=== PATIENT | male | born 1955 | race American Indian/Alaskan Native ===

== ENCOUNTER 2017-12-16 20:04 | Emergency (ER) | payer MEDICARE | END 2017-12-16 22:15 | disposition left against medical advice (07) | LOC: ED 20:04 | DX: Z53.21 Procedure and treatment not carried out due to patient leaving prior to being seen by health care provider (principal) ==

== ENCOUNTER 2018-08-25 12:32 | Observation (INO) | payer MEDICARE ==
[2018-08-16 11:40] LABS: Basophils # (Auto) 0.1 K/mm3 (0.0-0.1); Basophils % (Auto) 0.8 % (0.0-1.8); Eosinophils # (Auto) 0.2 K/mm3 (0.0-0.4); Eosinophils % (Auto) 3.6 % (0.0-4.3); Hematocrit 49.7 % (35.5-45.6); Hemoglobin 16.2 gm/dl (11.8-15.2); Lymphocytes # (Auto) 2.8 K/mm3 (1.2-5.4); Lymphocytes % (Auto) 39.6 % (13.4-35.0); Mean Corpuscular HGB Conc 33 % (32-34); Mean Corpuscular Hemoglobin 30 pg (28-32); Mean Corpuscular Volume 91 fl (84-94); Monocytes # (Auto) 0.7 K/mm3 (0.0-0.8); Monocytes % (Auto) 10.3 % (0.0-7.3); Platelet Count 322 K/mm3 (140-440); Red Blood Count 5.46 M/mm3 (3.65-5.03); Red Cell Distribution Width 16.2 % (13.2-15.2)
[2018-08-16 11:51] LABS: INR 1.06 (0.87-1.13); Partial Thromboplastin Time 32.3 Sec. (24.2-36.6)
[2018-08-16 11:58] LABS: Alanine Aminotransferase 13 units/L (7-56); Albumin 4.1 g/dL (3.9-5); BUN/Creatinine Ratio 9; Blood Urea Nitrogen 9 mg/dL (9-20); Calcium 8.7 mg/dL (8.4-10.2); Hemolysis Index 61
--- NOTE | 2018-08-16 13:36 | Anesthesia Consultation ---
Anesthesia Consult and Med Hx Date of service: 08/16/18 - Airway Anesthetic Teeth Evaluation: Poor ROM Head & Neck: Adequate Mental/Hyoid Distance: Adequate Mallampati Class: Class III Intubation Access Assessment: Possibly Difficult - Pulmonary Exam CTA: Yes - Cardiac Exam Cardiac Exam: RRR - Pre-Operative Health Status ASA Pre-Surgery Classification: ASA3 Proposed Anesthetic Plan: General - Pulmonary Hx Smoking: Yes (STOPPED 1997- 1 PACK PER WEEK X 8 YRS) Hx Asthma: No COPD: No Hx Sleep Apnea: Yes (DX SLEEP APNEA WITH CPAP USE.) - Cardiovascular System Hx Hypertension: Yes Hx Coronary Artery Disease: Yes Hx Heart Attack/AMI: Yes (1990; medically managed) Hx Angina: Yes (occasional with activity) Hx Percutaneous Transluminal Coronary Angioplasty (PTCA): No - Central Nervous System Hx Seizures: No CVA: Yes (2016- LEFT LEG WEAKNESS,PAIN ,NUMBNESS) Hx Back Pain: Yes Hx Psychiatric Problems: Yes (Anxiety disorder; STATES PTSD CAUSED MILD DEMENTIA ) - Gastrointestinal Hx Ulcer: No Hx Gastroesophageal Reflux Disease: No - Endocrine Hx Renal Disease: Yes (CKD) Hx Liver Disease: No Hx Insulin Dependent Diabetes: No Hx Thyroid Disease: No - Hematic Hx Anemia: No (polycythemia) - Other Systems Hx Alcohol Use: No Hx Substance Use: No Hx Cancer: No Hx Obesity: Yes - Additional Comments Anesthesia Medical History Comments: Patient has cardiology appointment 08/17 and will fax any test results to [facility] once completed. Reports chronic pain and takes oxycontin 10mg TID. Drowsy during examination which he attributes to chronic fatigue.
[2018-08-25] MEDS: LACTATED RINGERS 1,000 ML IV SCH ×2 (14:00→23:24)
[2018-08-25] MEDS ORDERED: ANCEF/STERILE WATER 2 GM/20 ML IV NR (14:00)
[2018-08-25] MEDS ORDERED: XYLOCAINE MPF 2% ONE (15:36)
[2018-08-25] MEDS ORDERED: DIPRIVAN 10 MG/ML IV ONE ×2 (15:36→16:23)
[2018-08-25] MEDS ORDERED: DILAUDID ONE ×3 (15:37→19:39)
[2018-08-25] MEDS ORDERED: HYDROGEN PEROXIDE IRRIGATION ONE (16:14)
[2018-08-25] MEDS ORDERED: NACL 0.9% IR ONE (16:14)
[2018-08-25] MEDS ORDERED: NEOSPORIN GU IR ONE (16:14)
[2018-08-25] MEDS ORDERED: ZOFRAN IV PRN ×2 (16:35→18:11)
--- NOTE | 2018-08-25 16:35 | Anesthesia Day of Surgery ---
Anesthesia Day of Surgery - Day of Surgery Patient Examined: Yes Patient H&P Reviewed: Yes Patient is NPO: Yes
[2018-08-25] MEDS ORDERED: DECADRON ONE (16:51)
[2018-08-25] MEDS ORDERED: ZOFRAN ONE (16:51)
[2018-08-25] MEDS ORDERED: SUBLIMAZE ONE ×3 (16:56→18:01)
--- NOTE | 2018-08-25 18:10 | Short Stay Summary ---
Short Stay Documentation Date of service: 08/25/18 Narrative H&P: 63 yr old male with impotence s/p ipp. pt with pain penile and unable to inflate----vavle malfunction Long discussion with pt & in pre op area again the want to replace - History Past Medical History: hypertension Past Surgical History: Other (ipp in past) - Allergies and Medications Current Medications: Allergies codeine Allergy (Verified 08/11/18 10:03) Itching Home Medications Medication Instructions Recorded Confirmed Last Taken Type Aspirin EC [Aspirin Enteric Coated 81 mg PO QDAY 09/07/13 08/25/18 08/22/18 History TAB] Cholecalciferol (Vitamin D3) 2,000 unit PO QDAY 09/07/13 08/11/18 08/24/18 22: 00 History [Vitamin D3 2,000 unit] Quetiapine Fumarate [SEROquel XR] 800 mg PO QHS 09/07/13 08/16/18 08/24/18 22: 00 History Oxycodone HCl/Acetaminophen 1 each PO Q6HR PRN #40 tablet 04/26/15 08/11/1801/10 22:00 Rx [Percocet 10/325 mg] Prazosin 50 mg PO QHS 04/26/15 08/16/18 08/24/18 22:00 History oxyCODONE [Roxicodone] 10 mg PO TID 08/11/18 08/25/18 08/24/18 22:00 History AtorvaSTATin [Lipitor] 10 mg PO QHS 08/16/18 08/16/18 08/24/18 22:00 History LORazepam [Ativan] 2 mg PO QHS 08/16/18 08/16/18 08/24/18 22:00 History Linaclotide (Nf) [Linzess (Nf)] 290 mcg PO QDAY 08/16/18 08/25/18 08/21/18 History Losartan/Hydrochlorothiazide 1 each PO DAILY 08/16/18 08/16/18 08/24/18 22:00 History [Losartan-Hctz 100-25 mg Tab] Potassium Chloride [Klor-Con 8] 8 meq PO QDAY 08/16/18 08/16/18 08/24/18 22:00 History Rivaroxaban [Xarelto] 5 mg PO QDAY 08/16/18 08/25/18 08/17/18 History Sertraline [Zoloft] 100 mg PO QDAY 08/16/18 08/16/18 08/24/18 22:00 History Tamsulosin HCl [Flomax] 0.4 mg PO DAILY 08/16/18 08/16/18 08/24/18 22:00 History busPIRone [Buspar] 10 mg PO TID 08/16/18 08/16/18 08/24/18 22:00 History Active Medications Cefazolin Sodium (Ancef/Sterile Water 2 Gm/20 Ml) 2 gm IV PREOP NR Stop: 08/25/18 23:59 Hydromorphone HCl (Dilaudid) 0.5 mg IV Q10MIN PRN PRN Reason: Pain , Severe (7-10) Stop: 08/26/18 06:00 Lactated Ringer's (Lactated Ringers) 1,000 mls @ 100 mls/hr IV DIRECT POLLY Last Admin: 08/25/18 14:00 Dose: 100 mls/hr Ondansetron HCl (Zofran) 4 mg IV ONCE PRN PRN Reason: Nausea And Vomiting - Physical exam General appearance: no acute distress, well-nourished Integumentary: no rash, no growths Breasts: deferred Heart: Regular rate, No murmurs Gastrointestinal: normal Male Genitourinary: normal Rectal Exam: deferred Extremities: no ischemia, No edema - Brief post op/procedure progress note Date of procedure: 08/25/18 Pre-op diagnosis: mal fx ipp Post-op diagnosis: same Procedure: replace ipp (18cm + 4 cm RTE) Anesthesia: CHRISTOPHER Surgeon: JANN JOSEPH Slitter And Rewinder Machine Operator: SHUBHAM CROCKER Estimated blood loss: minimal Pathology: list (ipp device) Specimen disposition: to lab Condition: stable - Hospital course Hospital course: bactrim & dilaudid on chart - Disposition Condition at discharge: Stable Disposition: DC-01 TO HOME OR SELFCARE Short Stay Discharge Plan Follow up with: PIERO CHAN MD [Primary Care Provider] - 7 Days
[2018-08-25] MEDS ORDERED: ZOFRAN ODT PO PRN (18:11)
[2018-08-25] MEDS ORDERED: NARCAN 0.4 MG/1 ML IV PRN (18:11)
[2018-08-25] MEDS ORDERED: DILAUDID PO PRN (18:20)
[2018-08-25] MEDS ORDERED: NACL 0.9% 1,000 ML IR ONE (18:44)
[2018-08-25] MEDS ORDERED: LACTATED RINGERS 1,000 ML IV SCH (19:00)
[2018-08-25] MEDS: DILAUDID IV PRN ×3 (19:10→20:58)
[2018-08-25] MEDS ORDERED: LACTATED RINGERS 1,000 ML ONE (19:43)
--- NOTE | 2018-08-25 19:59 | Consultation ---
History of Present Illness - Reason for Consult Consult date: 08/25/18 Requesting physician: JANN JOSEPH - History of Present Illness 63 YO Male with HTN, CAD, [place], PTSD, Chronic Pain, CVA LHP, TIGIST, Obesity presents to [facility] for elective urologic procedure. Consult placed for medical management as per primary team. Pt seen and evaluated upon arrival to surgical floor. Pt denies fever, chills, CP, Palpitations, shortness of breath, NVD, Falls, dizziness, syncope, or pain. Pt at bedside during exam and interview. No reported nursing events. Past History Past Medical History: acute [place], CAD, hypertension, stroke Past Surgical History: Other (ipp in past) Social history: , lives with family. denies: smoking, alcohol abuse, prescription drug abuse Family history: hypertension Medications and Allergies Allergies Allergy/AdvReac Type Severity Reaction Status Date / Time codeine Allergy Itching Verified 08/11/18 10:03 Home Medications Medication Instructions Recorded Confirmed Last Taken Type Aspirin EC [Aspirin Enteric Coated 81 mg PO QDAY 09/07/13 08/25/18 08/22/18 History TAB] Cholecalciferol (Vitamin D3) 2,000 unit PO QDAY 09/07/13 08/11/18 08/24/18 22: 00 History [Vitamin D3 2,000 unit] Quetiapine Fumarate [SEROquel XR] 800 mg PO QHS 09/07/13 08/16/18 08/24/18 22: 00 History Oxycodone HCl/Acetaminophen 1 each PO Q6HR PRN #40 tablet 04/26/15 08/11/1801/10 22:00 Rx [Percocet 10/325 mg] Prazosin 50 mg PO QHS 04/26/15 08/16/18 08/24/18 22:00 History oxyCODONE [Roxicodone] 10 mg PO TID 08/11/18 08/25/18 08/24/18 22:00 History AtorvaSTATin [Lipitor] 10 mg PO QHS 08/16/18 08/16/18 08/24/18 22:00 History LORazepam [Ativan] 2 mg PO QHS 08/16/18 08/16/18 08/24/18 22:00 History Linaclotide (Nf) [Linzess (Nf)] 290 mcg PO QDAY 08/16/18 08/25/18 08/21/18 History Losartan/Hydrochlorothiazide 1 each PO DAILY 08/16/18 08/16/18 08/24/18 22:00 History [Losartan-Hctz 100-25 mg Tab] Potassium Chloride [Klor-Con 8] 8 meq PO QDAY 08/16/18 08/16/18 08/24/18 22:00 History Rivaroxaban [Xarelto] 5 mg PO QDAY 08/16/18 08/25/18 08/17/18 History Sertraline [Zoloft] 100 mg PO QDAY 08/16/18 08/16/18 08/24/18 22:00 History Tamsulosin HCl [Flomax] 0.4 mg PO DAILY 08/16/18 08/16/18 08/24/18 22:00 History busPIRone [Buspar] 10 mg PO TID 08/16/18 08/16/18 08/24/18 22:00 History Active Meds: Active Medications Atorvastatin Calcium (Lipitor) 10 mg PO QHS POLLY Buspirone HCl (Buspar) 10 mg PO TID [facility] Cefazolin Sodium (Ancef/Sterile Water 2 Gm/20 Ml) 2 gm IV PREOP NR Stop: 08/25/18 23:59 Cholecalciferol (Vitamin D3) 2,000 unit PO QDAY POLLY Hydrochlorothiazide (Hctz) 25 mg PO QDAY POLLY Hydromorphone HCl (Dilaudid) 0.5 mg IV Q10MIN PRN PRN Reason: Pain , Severe (7-10) Stop: 08/26/18 06:00 Last Admin: 08/25/18 19:38 Dose: 0.5 mg Hydromorphone HCl (Dilaudid) 2 mg IV Q4H PRN PRN Reason: Pain , Severe (7-10) Lactated Ringer's (Lactated Ringers) 1,000 mls @ 100 mls/hr IV DIRECT POLLY Last Admin: 08/25/18 14:00 Dose: 100 mls/hr Cefazolin Sodium (Ancef/Ns 1 Gm/50 Ml) 1 gm in 50 mls @ 100 mls/hr IV Q8H POLLY; Protocol Stop: 08/26/18 03:29 Lactated Ringer's (Lactated Ringers) 1,000 mls @ 125 mls/hr IV DIRECT POLLY Lorazepam (Ativan) 2 mg PO QHS [facility] Losartan Potassium (Cozaar) 100 mg PO QDAY [facility] Miscellaneous Medication (Linaclotide (Nf)) 290 mcg PO QDAY [facility] Miscellaneous Medication (Prazosin) 50 mg PO QHS [facility] Miscellaneous Medication (Quetiapine Fumarate [Seroquel Xr]) 800 mg PO QHS [facility] Naloxone HCl (Narcan 0.4 Mg/1 Ml) 0.1 mg IV Q2MIN PRN PRN Reason: Res Rate </= 8 or 02 SAT < 92% Ondansetron HCl (Zofran) 4 mg IV ONCE PRN PRN Reason: Nausea And Vomiting Ondansetron HCl (Zofran) 4 mg IV Q8H PRN PRN Reason: N/V unrelieved by Reglan Ondansetron HCl (Zofran Odt) 4 mg PO Q8H PRN PRN Reason: Nausea And Vomiting Potassium Chloride (Klor-Con 8) 8 meq PO QDAY [facility] Sertraline HCl (Zoloft) 100 mg PO QDAY [facility] Tamsulosin HCl (Flomax) 0.4 mg PO DAILY [facility] Review of Systems Constitutional: no weight loss, no weight gain, no fever, no chills Ears, nose, mouth and throat: no ear discharge, no tinnitis, no decreased hearing, no nose pain, no nasal congestion, no nasal discharge Cardiovascular: no chest pain, no orthopnea, no palpitations, no rapid/ irregular heart beat, no edema, no syncope Respiratory: no cough, no cough with sputum, no excessive sputum, no hemoptysis , no shortness of breath Gastrointestinal: no abdominal pain, no nausea, no vomiting, no diarrhea, no constipation Genitourinary Male: no dysuria, no hematuria, no flank pain, no discharge, no urinary frequency, no urinary hesitancy Rectal: no pain, no incontinence, no bleeding Musculoskeletal: no neck stiffness, no neck pain, no shooting arm pain, no arm numbness/tingling, no low back pain, no shooting leg pain Integumentary: no rash, no pruritis, no redness, no sores, no wounds Neurological: no transient paralysis, no paralysis, no weakness, no parathesias , no numbness, no tingling Psychiatric: no anxiety, no memory loss, no change in sleep habits, no sleep disturbances, no insomnia Endocrine: no cold intolerance, no heat intolerance, no polyphagia, no excessive thirst, no polydipsia, no polyuria, no nocturia Hematologic/Lymphatic: no easy bruising, no easy bleeding, no lymphadenopathy, no lymphedema Allergic/Immunologic: no urticaria, no allergic rhinitis, no wheezing, no persistent infections, no anaphylaxis, no angioedema Exam - Constitutional Vitals: Temp Pulse Resp BP Pulse Ox 98.3 F 94 H 10 L 156/93 96 08/25/18 18:32 08/25/18 19:45 08/25/18 19:45 08/25/18 19:45 08/25/18 19:45 General appearance: Present: no acute distress, well-nourished - EENT Eyes: Present: PERRL ENT: hearing intact, clear oral mucosa - Neck Neck: Present: supple, normal ROM - Respiratory Respiratory effort: normal Respiratory: bilateral: CTA - Cardiovascular Heart Sounds: Present: S1 & S2. Absent: rub, click - Extremities Extremities: pulses symmetrical, No edema Peripheral Pulses: within normal limits - Abdominal General gastrointestinal: Present: soft, non-tender, non-distended, normal bowel sounds Male genitourinary: Present: normal - Integumentary Integumentary: Present: clear, warm, dry - Musculoskeletal Musculoskeletal: gait normal, strength equal bilaterally - Psychiatric Psychiatric: appropriate mood/affect, intact judgment & insight - Neurologic Neurologic: CNII-XII intact, moves all extremities Results - Labs CBC & Chem 7: 08/26/18 04:33 08/25/18 20:50 Assessment and Plan - Patient Problems (1) HTN (hypertension) Current Visit: Yes Status: Acute Qualifiers: Hypertension type: essential hypertension Qualified Code(s): I10 - Essential (primary) hypertension Plan to address problem: Monitor bp q shift, continue prehospital therapy, supportive care, pain control (2) TIGIST (obstructive sleep apnea) Current Visit: Yes Status: Acute Plan to address problem: supplemental oxygen, nebulizer therapy, NNIPPV as clinically indicated (3) CAD (coronary artery disease) Current Visit: Yes Status: Acute Qualifiers: Associated angina: without angina Plan to address problem: low cholesterol diet, increased physical activity at discharge, risk factor modification. (4) DVT prophylaxis Current Visit: No Status: Acute Plan to address problem: SCD to BLE while in bed.
[2018-08-25 21:18] LABS: Hematocrit 44.2 % (35.5-45.6); Hemoglobin 15.4 gm/dl (11.8-15.2); Mean Corpuscular HGB Conc 35 % (32-34); Mean Corpuscular Hemoglobin 31 pg (28-32); Mean Corpuscular Volume 89 fl (84-94); Platelet Count 313 K/mm3 (140-440); Red Blood Count 4.99 M/mm3 (3.65-5.03); Red Cell Distribution Width 15.3 % (13.2-15.2)
[2018-08-25 21:31] LABS: BUN/Creatinine Ratio 10; Blood Urea Nitrogen 10 mg/dL (9-20); Calcium 8.6 mg/dL (8.4-10.2); Hemolysis Index 22
[2018-08-25] MEDS ORDERED: PRAZOSIN PO SCH (22:00)
[2018-08-25] MEDS ORDERED: QUETIAPINE FUMARATE 800 MG PO SCH (22:00)
[2018-08-25 23:07] LABS: Basophils % (Manual) 0 % (0.0-1.8); Eosinophils % (Manual) 0 % (0.0-4.3); Platelet Estimate Consistent w Auto; RBC Morphology Normal; Total Cells Counted 100
[2018-08-25] MEDS: ATIVAN PO SCH (23:23)
--- NOTE | 2018-08-25 23:30 | Operative Report ---
PREOPERATIVE DIAGNOSES: Malfunctioning penile prosthesis, erectile dysfunction, pump malfunction. POSTOPERATIVE DIAGNOSES: Malfunctioning penile prosthesis, erectile dysfunction, pump malfunction. PROCEDURE: Removal of inflatable penile prosthesis and reinsertion of inflatable penile prosthesis (AMS CX 18 cm + 4 cm rear tip mooner Michael modified irrigation. SURGEON: Lan Benedict MD CLAY PIGEON LOADER: Demetrius Laguerre. ANESTHESIA: General. ESTIMATED BLOOD LOSS: Minimal. FLUIDS: Crystalloid. COMPLICATIONS: No complications. INDICATIONS: A 63-year-old gentleman known to my service long history of erectile dysfunction is actually seen by Dr. Wilde at [facility] initially where penile prosthesis was placed. I exchanged it due to pain. The patient did well for a while. He presents now. The pump causes pain and is not working. Exam was consistent with pump. The valve is malfunctioning and fluid will not move from the reservoir to the cylinders. Discussed options with the patient in the office, he agreed to proceed with removal. However, in the preop area, the day of surgery, the patient and his had a long discussion regarding whether to remove and replace the device. She was concerned about length and after answering their questions, they were both in agreement that we will remove and replace the penile prosthesis. The operative nurse was also present during this discussion. DESCRIPTION OF PROCEDURE: The patient was taken to the operative suite, placed in a supine position. After adequate general anesthesia, he was prepped and draped in a sterile fashion. Martinez catheter was placed on the operative field. A transscrotal incision was made. Sharp dissection was taken down to the pump. The pump was exposed. No obvious infection. The tissue was cultured with aerobic and anaerobic cultures. We tracked the tubing to the cylinders. Corporotomies were made, cylinders were removed. Again, no signs of infection, but these areas were cultured as well with anaerobic and aerobic cultures. Measurements revealed a total length was 22 cm and therefore an 18 cm device with a 4 cm rear tip extenders were prepped. The reservoir was in the retropubic space via the left external ring. Multiple attempts, aggressive attempts to try to remove it, only part of the device could be removed. The reservoir was left in place due to scar tissue. No signs of infection could be appreciated. Using a modified Michael ____ copious amounts of irrigation was performed. Adequate hemostasis achieved. A new set of gloves were placed, were donned and the cylinders were placed in the corporal bodies with the aid of a Ming needle. Corporotomies were closed with 2-0 Vicryl in a running fashion. Insufflation of the device revealed an excellent response. A new reservoir was placed in the retropubic space via the right external ring, 100 mL of saline was placed with minimal back pressure. The pump and the reservoir were connected with the quick click connection system. Insufflation and deflation was adequate, very good cosmetic appearance. The pump was then placed in the dependent portion of the scrotum. Dartos layer was closed with 2-0 Vicryl in a running fashion. A pursestring suture was used to secure the pump in the dependent portion of the scrotum. Skin was closed with 2-0 Vicryl in interrupted fashion. A small piece of Xeroform gauze and mummy wrap was placed. The patient was extubated and taken to recovery room. Demetrius Laguerre was present for the entire procedure to assist with surgical dissection. JOB# [id number] GARY/ALFREDO
[2018-08-26] MEDS: BUSPAR PO SCH ×4 (00:35→20:42)
[2018-08-26] MEDS: DILAUDID IV PRN ×5 (01:21→19:47)
[2018-08-26] MEDS: ANCEF/NS 1 GM/50 ML 1 GM/50 ML BAG IV SCH ×2 (03:22→03:29)
[2018-08-26 05:18] LABS: Basophils % (Auto) 0.1 % (0.0-1.8); Hematocrit 47.6 % (35.5-45.6); Hemoglobin 15.6 gm/dl (11.8-15.2); Lymphocytes # (Auto) 1.8 K/mm3 (1.2-5.4); Lymphocytes % (Auto) 13.2 % (13.4-35.0); Mean Corpuscular HGB Conc 33 % (32-34); Mean Corpuscular Hemoglobin 29 pg (28-32); Mean Corpuscular Volume 89 fl (84-94); Monocytes # (Auto) 1.5 K/mm3 (0.0-0.8); Monocytes % (Auto) 10.9 % (0.0-7.3); Platelet Count 331 K/mm3 (140-440); Red Blood Count 5.32 M/mm3 (3.65-5.03); Red Cell Distribution Width 15.2 % (13.2-15.2)
[2018-08-26 05:33] LABS: BUN/Creatinine Ratio 9; Blood Urea Nitrogen 9 mg/dL (9-20); Calcium 9.1 mg/dL (8.4-10.2); Hemolysis Index 15
--- NOTE | 2018-08-26 08:43 | Event Note ---
Date: 08/26/18 s/p replace ipp looks good wrap removed hx of BPH now gross hematuria CTAP
[2018-08-26] MEDS ORDERED: FLOMAX PO SCH ×2 (10:00)
[2018-08-26] MEDS ORDERED: NON-FORMULARY (Linaclotide (Nf) 290 MCG) PO SCH (10:00)
[2018-08-26] MEDS ORDERED: KLOR-CON 8 PO SCH (10:00)
[2018-08-26] MEDS ORDERED: NON-FORMULARY (Losartan/Hydrochlorothiazide [Losartan-Hctz 100-25 Mg Tab] 1 EACH) PO SCH (10:00)
[2018-08-26] MEDS ORDERED: NON-FORMULARY (Cholecalciferol (Vitamin D3) [Vitamin D3 2,000 Unit] 2,000 UNIT) PO SCH (10:00)
[2018-08-26] MEDS: ZOLOFT PO SCH (10:16)
[2018-08-26] MEDS: VITAMIN D3 PO SCH (10:16)
[2018-08-26] MEDS: HCTZ PO SCH (10:17)
[2018-08-26] MEDS: COZAAR PO SCH (10:17)
--- NOTE | 2018-08-26 10:34 | Cat Scan Report ---
CT ABDOMEN PELVIS WITHOUT CONTRAST: HISTORY: Gross hematuria. COMPARISON: none. TECHNIQUE: Helical CT in 1.25mm intervals without IV contrast. Sagittal and coronal reconstructions. FINDINGS: Lung bases: Small bilateral layering pleural effusions are identified. Liver: A 4 cm cyst is noted near the dome of the liver. The remainder the liver is within normal limits. Biliary system: Normal. Pancreas: Normal. Spleen: Normal. Kidneys/ureters/bladder: The kidneys and ureters are unremarkable. No evidence for nephrolithiasis or hydronephrosis. The bladder is decompressed with a Martinez catheter but appears grossly normal. There are bilateral penile implants. The right implant appears to have an abnormal position residing more posterior and projecting into the ischial rectal fat on the right side. This area is partially imaged. Please correlate with the patient's and the images. There is gas in both inguinal regions and right lower quadrant surrounding the device. Adrenal glands: Normal. Aorta: Normal. Intestines: Scattered diverticula are identified in the distal colon. There is a focal area of inflammation in the distal descending colon consistent with focal acute diverticulitis. Appendix: Not confidently identified. Pelvic viscera: Normal. Ascites: None. Adenopathy: None. Musculoskeletal: Intact. Mild degenerative changes in the spine are noted. IMPRESSION: Acute diverticulitis of the descending colon. Question abnormal appearance of the penile implant which is partially imaged on this exam. Please see above.
[2018-08-26] MEDS: ATIVAN PO SCH (21:30)
[2018-08-27] MEDS: DILAUDID IV PRN ×2 (00:24→06:34)
--- NOTE | 2018-08-27 07:41 | Progress Note ---
Assessment and Plan Assessment and plan: (1) HTN (hypertension) Current Visit: Yes Status: Acute Qualifiers: Hypertension type: essential hypertension Qualified Code(s): I10 - Essential (primary) hypertension Plan to address problem: Monitor bp q shift, continue prehospital therapy, supportive care, pain control (2) TIGIST (obstructive sleep apnea) Current Visit: Yes Status: Acute Plan to address problem: supplemental oxygen, nebulizer therapy, NNIPPV as clinically indicated (3) CAD (coronary artery disease) Current Visit: Yes Status: Acute Qualifiers: Associated angina: without angina Plan to address problem: low cholesterol diet, increased physical activity at discharge, risk factor modification. (4) DVT prophylaxis Current Visit: No Status: Acute Plan to address problem: SCD to BLE while in bed. Hospitalist Physical - Constitutional Vitals: Temp Pulse Resp BP Pulse Ox 98.3 F 79 17 147/84 98 08/27/18 04:41 08/27/18 04:39 08/27/18 06:34 08/27/18 04:39 08/27/18 04:39 General appearance: Present: no acute distress, well-nourished Results - Labs CBC & Chem 7: 08/26/18 04:33 08/26/18 04:33 Labs: Laboratory Last Values WBC 13.5 K/mm3 (4.5-11.0) H 08/26/18 04:33 RBC 5.32 M/mm3 (3.65-5.03) H 08/26/18 04:33 Hgb 15.6 gm/dl (11.8-15.2) H 08/26/18 04:33 Hct 47.6 % (35.5-45.6) H 08/26/18 04:33 MCV 89 fl (84-94) 08/26/18 04:33 MCH 29 pg (28-32) 08/26/18 04:33 MCHC 33 % (32-34) 08/26/18 04:33 RDW 15.2 % (13.2-15.2) 08/26/18 04:33 Plt Count 331 K/mm3 (140-440) 08/26/18 04:33 Lymph % (Auto) 13.2 % (13.4-35.0) L 08/26/18 04:33 [place] % (Auto) 10.9 % (0.0-7.3) H 08/26/18 04:33 Eos % (Auto) 0.0 % (0.0-4.3) 08/26/18 04:33 Baso % (Auto) 0.1 % (0.0-1.8) 08/26/18 04:33 Lymph # 1.8 K/mm3 (1.2-5.4) 08/26/18 04:33 [place] # 1.5 K/mm3 (0.0-0.8) H 08/26/18 04:33 Eos # 0.0 K/mm3 (0.0-0.4) 08/26/18 04:33 Baso # 0.0 K/mm3 (0.0-0.1) 08/26/18 04:33 Add Manual Diff Complete 08/25/18 20:50 Total Counted 100 08/25/18 20:50 Seg Neutrophils % 75.8 % (40.0-70.0) H 08/26/18 04:33 Seg Neuts % (Manual) 92.0 % (40.0-70.0) H 08/25/18 20:50 Band Neutrophils % 0 % 08/25/18 20:50 Lymphocytes % (Manual) 4.0 % (13.4-35.0) L 08/25/18 20:50 Reactive Lymphs % (Man) 0 % 08/25/18 20:50 Monocytes % (Manual) 4.0 % (0.0-7.3) 08/25/18 20:50 Eosinophils % (Manual) 0 % (0.0-4.3) 08/25/18 20:50 Basophils % (Manual) 0 % (0.0-1.8) 08/25/18 20:50 Metamyelocytes % 0 % 08/25/18 20:50 Myelocytes % 0 % 08/25/18 20:50 Promyelocytes % 0 % 08/25/18 20:50 Blast Cells % 0 % 08/25/18 20:50 Nucleated RBC % Not Reportable 08/25/18 20:50 Seg Neutrophils # 10.2 K/mm3 (1.8-7.7) H 08/26/18 04:33 Seg Neutrophils # Man 12.1 K/mm3 (1.8-7.7) H 08/25/18 20:50 Band Neutrophils # 0.0 K/mm3 08/25/18 20:50 Lymphocytes # (Manual) 0.5 K/mm3 (1.2-5.4) L 08/25/18 20:50 Abs React Lymphs (Man) 0.0 K/mm3 08/25/18 20:50 Monocytes # (Manual) 0.5 K/mm3 (0.0-0.8) 08/25/18 20:50 Eosinophils # (Manual) 0.0 K/mm3 (0.0-0.4) 08/25/18 20:50 Basophils # (Manual) 0.0 K/mm3 (0.0-0.1) 08/25/18 20:50 Metamyelocytes # 0.0 K/mm3 08/25/18 20:50 Myelocytes # 0.0 K/mm3 08/25/18 20:50 Promyelocytes # 0.0 K/mm3 08/25/18 20:50 Blast Cells # 0.0 K/mm3 08/25/18 20:50 WBC Morphology Not Reportable 08/25/18 20:50 Hypersegmented Neuts Not Reportable 08/25/18 20:50 Hyposegmented Neuts Not Reportable 08/25/18 20:50 Hypogranular Neuts Not Reportable 08/25/18 20:50 Smudge Cells Not Reportable 08/25/18 20:50 Toxic Granulation Not Reportable 08/25/18 20:50 Toxic Vacuolation Not Reportable 08/25/18 20:50 Dohle Bodies Not Reportable 08/25/18 20:50 Pelger-Huet Anomaly Not Reportable 08/25/18 20:50 John Rods Not Reportable 08/25/18 20:50 Platelet Estimate Consistent w auto 08/25/18 20:50 Clumped Platelets Not Reportable 08/25/18 20:50 Plt Clumps, EDTA Not Reportable 08/25/18 20:50 Large Platelets Not Reportable 08/25/18 20:50 Giant Platelets Not Reportable 08/25/18 20:50 Platelet Satelliting Not Reportable 08/25/18 20:50 Plt Morphology Comment Not Reportable 08/25/18 20:50 RBC Morphology Normal 08/25/18 20:50 Dimorphic RBCs Not Reportable 08/25/18 20:50 Polychromasia Not Reportable 08/25/18 20:50 Hypochromasia Not Reportable 08/25/18 20:50 Poikilocytosis Not Reportable 08/25/18 20:50 Anisocytosis Not Reportable 08/25/18 20:50 Microcytosis Not Reportable 08/25/18 20:50 Macrocytosis Not Reportable 08/25/18 20:50 Spherocytes Not Reportable 08/25/18 20:50 Pappenheimer Bodies Not Reportable 08/25/18 20:50 Sickle Cells Not Reportable 08/25/18 20:50 Target Cells Not Reportable 08/25/18 20:50 Tear Drop Cells Not Reportable 08/25/18 20:50 Ovalocytes Not Reportable 08/25/18 20:50 Helmet Cells Not Reportable 08/25/18 20:50 [place] Bodies Not Reportable 08/25/18 20:50 [place] Rings Not Reportable 08/25/18 20:50 [place] Cells Not Reportable 08/25/18 20:50 Bite Cells Not Reportable 08/25/18 20:50 Crenated Cell Not Reportable 08/25/18 20:50 Elliptocytes Not Reportable 08/25/18 20:50 Acanthocytes (Spur) Not Reportable 08/25/18 20:50 Rouleaux Not Reportable 08/25/18 20:50 Hemoglobin C Crystals Not Reportable 08/25/18 20:50 Schistocytes Not Reportable 08/25/18 20:50 Malaria parasites Not Reportable 08/25/18 20:50 [place] Bodies Not Reportable 08/25/18 20:50 Hem Pathologist Commnt No 08/25/18 20:50 PT 14.3 Sec. (12.2-14.9) 08/16/18 11:00 INR 1.06 (0.87-1.13) 08/16/18 11:00 APTT 32.3 Sec. (24.2-36.6) 08/16/18 11:00 Sodium 137 mmol/L (137-145) 08/26/18 04:33 Potassium 4.3 mmol/L (3.6-5.0) 08/26/18 04:33 Chloride 98.7 mmol/L (98-107) 08/26/18 04:33 Carbon Dioxide 28 mmol/L (22-30) 08/26/18 04:33 Anion Gap 15 mmol/L 08/26/18 04:33 BUN 9 mg/dL (9-20) 08/26/18 04:33 Creatinine 1.0 mg/dL (0.8-1.5) 08/26/18 04:33 Estimated GFR > 60 ml/min 08/26/18 04:33 BUN/Creatinine Ratio 9 % 08/26/18 04:33 Glucose 114 mg/dL (75-100) H 08/26/18 04:33 Calcium 9.1 mg/dL (8.4-10.2) 08/26/18 04:33 Total Bilirubin 0.20 mg/dL (0.1-1.2) 08/16/18 11:00 AST 20 units/L (5-40) 08/16/18 11:00 ALT 13 units/L (7-56) 08/16/18 11:00 Alkaline Phosphatase 92 units/L (35-129) 08/16/18 11:00 Total Protein 7.7 g/dL (6.3-8.2) 08/16/18 11:00 Albumin 4.1 g/dL (3.9-5) 08/16/18 11:00 Albumin/Globulin Ratio 1.1 % 08/16/18 11:00
[2018-08-27] MEDS: COZAAR PO SCH (09:45)
[2018-08-27] MEDS: BUSPAR PO SCH (09:46)
[2018-08-27] MEDS: VITAMIN D3 PO SCH (09:46)
[2018-08-27] MEDS: ZOLOFT PO SCH (09:46)
[2018-08-27 09:47] VITALS: BP 118/82
[2018-08-27] MEDS: HCTZ PO SCH (09:47)
[2018-08-27] MEDS ORDERED: FLOMAX PO SCH (10:00)
--- NOTE | 2018-08-27 11:49 | Progress Note ---
Assessment and Plan Assessment and plan: 63 yr old male with impotence s/p ipp. pt with pain penile and unable to inflate----valve malfunction Long discussion with pt & in pre op area again the want to replace - History Past Medical History: hypertension (1) HTN (hypertension) Current Visit: Yes Status: Acute Qualifiers: Hypertension type: essential hypertension Qualified Code(s): I10 - Essential (primary) hypertension Plan to address problem: Monitor bp q shift, continue prehospital therapy, supportive care, pain control (2) TIGIST (obstructive sleep apnea) Current Visit: Yes Status: Acute Plan to address problem: supplemental oxygen, nebulizer therapy, NNIPPV as clinically indicated (3) CAD (coronary artery disease) Current Visit: Yes Status: Acute Qualifiers: Associated angina: without angina Plan to address problem: low cholesterol diet, increased physical activity at discharge, risk factor modification. (4) DVT prophylaxis Current Visit: No Status: Acute Plan to address problem: SCD to BLE while in bed. Hospitalist Physical - Constitutional Vitals: Temp Pulse Resp BP Pulse Ox 98.3 F 87 20 118/82 98 08/27/18 04:41 08/27/18 09:45 08/27/18 08:51 08/27/18 09:45 08/27/18 04:39 General appearance: Present: no acute distress, well-nourished Results - Labs CBC & Chem 7: 08/26/18 04:33 08/26/18 04:33 Labs: Laboratory Last Values WBC 13.5 K/mm3 (4.5-11.0) H 08/26/18 04:33 RBC 5.32 M/mm3 (3.65-5.03) H 08/26/18 04:33 Hgb 15.6 gm/dl (11.8-15.2) H 08/26/18 04:33 Hct 47.6 % (35.5-45.6) H 08/26/18 04:33 MCV 89 fl (84-94) 08/26/18 04:33 MCH 29 pg (28-32) 08/26/18 04:33 MCHC 33 % (32-34) 08/26/18 04:33 RDW 15.2 % (13.2-15.2) 08/26/18 04:33 Plt Count 331 K/mm3 (140-440) 08/26/18 04:33 Lymph % (Auto) 13.2 % (13.4-35.0) L 08/26/18 04:33 [place] % (Auto) 10.9 % (0.0-7.3) H 08/26/18 04:33 Eos % (Auto) 0.0 % (0.0-4.3) 08/26/18 04:33 Baso % (Auto) 0.1 % (0.0-1.8) 08/26/18 04:33 Lymph # 1.8 K/mm3 (1.2-5.4) 08/26/18 04:33 [place] # 1.5 K/mm3 (0.0-0.8) H 08/26/18 04:33 Eos # 0.0 K/mm3 (0.0-0.4) 08/26/18 04:33 Baso # 0.0 K/mm3 (0.0-0.1) 08/26/18 04:33 Add Manual Diff Complete 08/25/18 20:50 Total Counted 100 08/25/18 20:50 Seg Neutrophils % 75.8 % (40.0-70.0) H 08/26/18 04:33 Seg Neuts % (Manual) 92.0 % (40.0-70.0) H 08/25/18 20:50 Band Neutrophils % 0 % 08/25/18 20:50 Lymphocytes % (Manual) 4.0 % (13.4-35.0) L 08/25/18 20:50 Reactive Lymphs % (Man) 0 % 08/25/18 20:50 Monocytes % (Manual) 4.0 % (0.0-7.3) 08/25/18 20:50 Eosinophils % (Manual) 0 % (0.0-4.3) 08/25/18 20:50 Basophils % (Manual) 0 % (0.0-1.8) 08/25/18 20:50 Metamyelocytes % 0 % 08/25/18 20:50 Myelocytes % 0 % 08/25/18 20:50 Promyelocytes % 0 % 08/25/18 20:50 Blast Cells % 0 % 08/25/18 20:50 Nucleated RBC % Not Reportable 08/25/18 20:50 Seg Neutrophils # 10.2 K/mm3 (1.8-7.7) H 08/26/18 04:33 Seg Neutrophils # Man 12.1 K/mm3 (1.8-7.7) H 08/25/18 20:50 Band Neutrophils # 0.0 K/mm3 08/25/18 20:50 Lymphocytes # (Manual) 0.5 K/mm3 (1.2-5.4) L 08/25/18 20:50 Abs React Lymphs (Man) 0.0 K/mm3 08/25/18 20:50 Monocytes # (Manual) 0.5 K/mm3 (0.0-0.8) 08/25/18 20:50 Eosinophils # (Manual) 0.0 K/mm3 (0.0-0.4) 08/25/18 20:50 Basophils # (Manual) 0.0 K/mm3 (0.0-0.1) 08/25/18 20:50 Metamyelocytes # 0.0 K/mm3 08/25/18 20:50 Myelocytes # 0.0 K/mm3 08/25/18 20:50 Promyelocytes # 0.0 K/mm3 08/25/18 20:50 Blast Cells # 0.0 K/mm3 08/25/18 20:50 WBC Morphology Not Reportable 08/25/18 20:50 Hypersegmented Neuts Not Reportable 08/25/18 20:50 Hyposegmented Neuts Not Reportable 08/25/18 20:50 Hypogranular Neuts Not Reportable 08/25/18 20:50 Smudge Cells Not Reportable 08/25/18 20:50 Toxic Granulation Not Reportable 08/25/18 20:50 Toxic Vacuolation Not Reportable 08/25/18 20:50 Dohle Bodies Not Reportable 08/25/18 20:50 Pelger-Huet Anomaly Not Reportable 08/25/18 20:50 John Rods Not Reportable 08/25/18 20:50 Platelet Estimate Consistent w auto 08/25/18 20:50 Clumped Platelets Not Reportable 08/25/18 20:50 Plt Clumps, EDTA Not Reportable 08/25/18 20:50 Large Platelets Not Reportable 08/25/18 20:50 Giant Platelets Not Reportable 08/25/18 20:50 Platelet Satelliting Not Reportable 08/25/18 20:50 Plt Morphology Comment Not Reportable 08/25/18 20:50 RBC Morphology Normal 08/25/18 20:50 Dimorphic RBCs Not Reportable 08/25/18 20:50 Polychromasia Not Reportable 08/25/18 20:50 Hypochromasia Not Reportable 08/25/18 20:50 Poikilocytosis Not Reportable 08/25/18 20:50 Anisocytosis Not Reportable 08/25/18 20:50 Microcytosis Not Reportable 08/25/18 20:50 Macrocytosis Not Reportable 08/25/18 20:50 Spherocytes Not Reportable 08/25/18 20:50 Pappenheimer Bodies Not Reportable 08/25/18 20:50 Sickle Cells Not Reportable 08/25/18 20:50 Target Cells Not Reportable 08/25/18 20:50 Tear Drop Cells Not Reportable 08/25/18 20:50 Ovalocytes Not Reportable 08/25/18 20:50 Helmet Cells Not Reportable 08/25/18 20:50 Ric[place] Bodies Not Reportable 08/25/18 20:50 [place] Rings Not Reportable 08/25/18 20:50 [place] Cells Not Reportable 08/25/18 20:50 Bite Cells Not Reportable 08/25/18 20:50 Crenated Cell Not Reportable 08/25/18 20:50 Elliptocytes Not Reportable 08/25/18 20:50 Acanthocytes (Spur) Not Reportable 08/25/18 20:50 Rouleaux Not Reportable 08/25/18 20:50 Hemoglobin C Crystals Not Reportable 08/25/18 20:50 Schistocytes Not Reportable 08/25/18 20:50 Malaria parasites Not Reportable 08/25/18 20:50 [place] Bodies Not Reportable 08/25/18 20:50 Hem Pathologist Commnt No 08/25/18 20:50 PT 14.3 Sec. (12.2-14.9) 08/16/18 11:00 INR 1.06 (0.87-1.13) 08/16/18 11:00 APTT 32.3 Sec. (24.2-36.6) 08/16/18 11:00 Sodium 137 mmol/L (137-145) 08/26/18 04:33 Potassium 4.3 mmol/L (3.6-5.0) 08/26/18 04:33 Chloride 98.7 mmol/L (98-107) 08/26/18 04:33 Carbon Dioxide 28 mmol/L (22-30) 08/26/18 04:33 Anion Gap 15 mmol/L 08/26/18 04:33 BUN 9 mg/dL (9-20) 08/26/18 04:33 Creatinine 1.0 mg/dL (0.8-1.5) 08/26/18 04:33 Estimated GFR > 60 ml/min 08/26/18 04:33 BUN/Creatinine Ratio 9 % 08/26/18 04:33 Glucose 114 mg/dL (75-100) H 08/26/18 04:33 Calcium 9.1 mg/dL (8.4-10.2) 08/26/18 04:33 Total Bilirubin 0.20 mg/dL (0.1-1.2) 08/16/18 11:00 AST 20 units/L (5-40) 08/16/18 11:00 ALT 13 units/L (7-56) 08/16/18 11:00 Alkaline Phosphatase 92 units/L (35-129) 08/16/18 11:00 Total Protein 7.7 g/dL (6.3-8.2) 08/16/18 11:00 Albumin 4.1 g/dL (3.9-5) 08/16/18 11:00 Albumin/Globulin Ratio 1.1 % 08/16/18 11:00
--- NOTE | 2018-08-27 12:38 | Discharge Summary ---
Providers - Providers Date of Admission: 08/25/18 18:11 Attending physician: JANN JOSEPH 08/25/18 18:11 Consult to Physician [CONS] Routine Comment: Consulting Provider: ROSCOE BRIGGS Physician Instructions: Reason For Exam: htn Primary care physician: PIERO CHAN Hospitalization Condition: Stable Disposition: DC-01 TO HOME OR SELFCARE Core Measure Documentation - Palliative Care Palliative Care/ Comfort Measures: Not Applicable Exam - Constitutional Vitals: Temp Pulse Resp BP Pulse Ox 98.3 F 87 20 118/82 98 08/27/18 04:41 08/27/18 09:45 08/27/18 08:51 08/27/18 09:45 08/27/18 04:39 Plan Follow up with: PIERO CHAN MD [Primary Care Provider] - 7 Days
== END 2018-08-27 11:51 | disposition home or self-care (01) ==
LOC: OR 12:32 → 3B-SURG 18:11
PROVIDERS: ADMIT Urology; ATTEND Urology
DX: T83.490A Other mechanical complication of implanted penile prosthesis, initial encounter (principal); N52.9 Male erectile dysfunction, unspecified
CPT/HCPCS: 36415; 54416; 74176; 80048; 80053; 85007; 85025; 85610; 85730; 87075; 87116; 88302; 94660; 96365; 96375; 96376; A9270; C1813; G0378; J0690; J1100; J1170; J2405; J2704; J3010; J3246; J7120

== ENCOUNTER 2020-09-28 16:24 | Emergency (ER) | payer MEDICARE ==
[2020-09-28 17:37] VITALS: BP 152/65
[2020-09-28 20:17] LABS: Alanine Aminotransferase 9 units/L (7-56); Albumin 3.8 g/dL (3.9-5); BUN/Creatinine Ratio 6; Blood Urea Nitrogen 6 mg/dL (9-20); Calcium 9.1 mg/dL (8.4-10.2); Hemolysis Index 46
[2020-09-28 20:25] LABS: Basophils % (Auto) 0.6 % (0.0-1.8); Eosinophils # (Auto) 0.1 K/mm3 (0.0-0.4); Eosinophils % (Auto) 1.6 % (0.0-4.3); Hematocrit 46.2 % (35.5-45.6); Hemoglobin 15.1 gm/dl (11.8-15.2); Lymphocytes # (Auto) 2.2 K/mm3 (1.2-5.4); Lymphocytes % (Auto) 28.6 % (13.4-35.0); Mean Corpuscular HGB Conc 33 % (32-34); Mean Corpuscular Volume 89 fl (84-94); Platelet Count 253 K/mm3 (140-440); Red Blood Count 5.18 M/mm3 (3.65-5.03); Red Cell Distribution Width 15.2 % (13.2-15.2)
== END 2020-09-28 19:00 | disposition left against medical advice (07) ==
LOC: ED 16:24
DX: R22.1 Localized swelling, mass and lump, neck (principal); Z98.890 Other specified postprocedural states; Z53.21 Procedure and treatment not carried out due to patient leaving prior to being seen by health care provider
CPT/HCPCS: 36415; 80053; 85025

== ENCOUNTER 2021-02-13 12:25 | Emergency (ER) | payer MEDICARE ==
--- NOTE | 2021-02-13 12:36 | Emergency Department Report ---
ED General Adult HPI - General Chief complaint: Urogenital-Male Stated complaint: UNABLE TO PASS URINE Time Seen by Provider: 02/13/21 12:33 Source: patient Mode of arrival: Ambulatory Limitations: No Limitations - History of Present Illness Initial comments: This is a 65-year-old man with multiple past medical problems. He does apparently have an extensive of psychiatric history taking Seroquel thioridazine and BuSpar. In addition, he is opioid dependent for chronic left knee pain for which he takes oxycodone. The patient presents to the emergency department today stating that he cannot urinate. However, when a Martinez catheter was placed there was just a small amount of urine. He states that he cannot have a bowel movement as well. He states his last bowel movement was 2 days ago and subsequent to an enema. It was otherwise normal. He states he is not passing gas now. He has no history of previous abdominal surgery. He has not been vomiting. He does not complain of nausea. He denies any abdominal pain whatsoever. Discharge summary and brief history and hospital stay 08/12: 65 YO Male with HTN, Recurrent CVA currently on Therapeutic Anticoagulation, Obesity, AR, Migraine MUÑIZ, Debility, Cerebral Atherosclerosis, Vascular Dementia, PTSD, IBS, Asthma, OA presents to ED for evaluation. Patient is confused and lethargic at the time of my evaluation is unable to provide history. Patient history provided by ED staff, EMS staff. As per staff the patient was found lying on the floor in his bedroom confused and pulling at the bed sheets unable to speak clearly, and unable to walk. EMS was notified and upon arrival the patient was found to be in distress with evidence of neurologic deficit. A code stroke was called and the patient was transported to [facility] for further care and evaluation of the aforementioned symptoms. Patient seen and evaluated in the emergency department. Lab and imaging studies reviewed. Patient found to have clinical symptoms consistent with CVA, metabolic encephalopathy, systemic inflammatory response syndrome suspected secondary to urinary tract infection. Patient admitted to medical floor and initiated on CVA protocol as well as empiric IV antibiotic therapy. Neuro work-up so far: CT head without contrast: potential thrombus in MCA trifurcation region on the right no focal mass or hemorrhage next CTA neck calcified atheromatous plaque more than 90% stenosis in the proximal right ICA CTA head; no significant narrowing on CTA head MRI brain; no acute abnormality, chronic changes Carotid Doppler; 50 to 79% stenosis both proximal ICA CT cervical spine no signs of acute bony trauma in the cervical spine Echo EF 55 to 60%, no shunt no shunt neuro work-up Carotid artery stenosis, vascular has evaluated the patient, feels that patient's neuro symptoms are secondary to delirium and medication induced No intervention at this point, however advised aspirin and statin, and follow-up with vascular upon discharge on CTA head potential thrombus MCA bifurcation; , patient will follow with private neurologist who will follow with evaluate the finding Discharge diagnosis; --Acute metabolic encephalopathy : Multifactorial, neuro work-up negative except for carotid artery disease, evaluated by vascular, outpatient follow-up, continue aspirin and statin Symptoms probably secondary to delirium, PTSD or Seroquel, continue supportive care Neuro work-up negative, MRI no acute abnormality Patient will follow-up with neurologist upon discharge --Acute CVA: CVA work-up negative Acute CVA ruled out --Carotid artery stenosis; aspirin and statin, vascular evaluated Outpatient follow-up, For further evaluation and management --Vascular dementia. Supportive care --Recurrent CVA; patient is already on therapeutic anticoagulation with Xarelto Advised to follow-up with private neurologist upon discharge --Dyslipidemia; continue statin, low-cholesterol diet --History of BPH; continue tamsulosin --DVT prophylaxis; patient is on Xarelto PT evaluated; recommend home health PT OT evaluated; no needs Patient is stable at discharge I spent 40 minutes coordinating this discharge Patient subsequently had a carotid endarterectomy in September 2020. -: Gradual, days(s) Associated Symptoms: denies other symptoms - Related Data Home Medications Medication Instructions Recorded Confirmed Last Taken Quetiapine Fumarate [SEROquel XR] 800 mg PO QHS 09/07/13 09/21/20 09/24/20 Prazosin 50 mg PO QHS 04/26/15 09/21/20 09/24/20 oxyCODONE [roxiCODONE] 10 mg PO TID PRN 08/11/18 09/21/20 09/24/20 Tamsulosin HCl [Flomax] 0.4 mg PO DAILY 08/16/18 09/21/20 09/24/20 busPIRone [Buspar] 10 mg PO TID 08/16/18 09/21/20 09/24/20 Oxybutynin Chloride [Ditropan Xl] 10 mg PO QDAY 09/21/20 09/21/20 09/24/20 Thioridazine (Nf) [Mellaril (Nf)] 100 mg PO TID 09/21/20 09/21/20 09/24/20 traMADoL [Ultram 50 MG tab] 50 mg PO Q6HR PRN 09/21/20 09/21/20 09/24/20 Previous Rx's Medication Instructions Recorded Last Taken Type Oxycodone HCl/Acetaminophen 1 each PO Q6HR PRN #30 tablet 09/26/20 Unknown Rx [Percocet 7.5/325 mg] cefUROXime [Ceftin] 250 mg PO Q12H #14 tablet 02/13/21 Unknown Rx Allergies Allergy/AdvReac Type Severity Reaction Status Date / Time codeine Allergy Itching Verified 09/19/20 15:06 ED Review of Systems ROS: Stated complaint: UNABLE TO PASS URINE Other details as noted in HPI Constitutional: denies: chills, fever Eyes: denies: eye pain, vision change ENT: denies: ear pain, throat pain Respiratory: denies: cough, shortness of breath Cardiovascular: denies: chest pain, palpitations Endocrine: no symptoms reported Gastrointestinal: constipation. denies: abdominal pain, nausea, diarrhea Genitourinary: as per HPI. denies: urgency, dysuria Musculoskeletal: denies: back pain, joint swelling, arthralgia Skin: denies: rash, lesions Neurological: denies: headache, weakness, paresthesias Psychiatric: denies: anxiety, depression Hematological/Lymphatic: denies: easy bleeding, easy bruising ED Past Medical Hx - Past Medical History Previous Medical History?: Yes Hx Hypertension: Yes (+Cardiac clearance on chart; Negative NST) Hx CVA: Yes (4) Hx Heart Attack/AMI: Yes Hx Congestive Heart Failure: No Hx Diabetes: No Hx Deep Vein Thrombosis: No Hx Pulmonary Embolism: No Hx GERD: No Hx Liver Disease: No Hx Renal Disease: No Hx Sickle Cell Disease: No Hx Arthritis: Yes Hx Headaches / Migraines: Yes (Migraines) Hx Seizures: No Hx Kidney Stones: No Hx Psychiatric Treatment: Yes (PTSD) Hx Asthma: No Hx COPD: No Hx Tuberculosis: No Hx Dementia: Yes Hx HIV: No Additional medical history: "IBS" - Surgical History Hx Open Heart Surgery: No Hx Pacemaker: No Hx Cholecystectomy: No Hx Appendectomy: No Hx Breast Surgery: No Additional Surgical History: lap band, penile implant - Social History Smoking Status: Former Smoker - Medications Home Medications: Home Medications Medication Instructions Recorded Confirmed Last Taken Type Quetiapine Fumarate [SEROquel XR] 800 mg PO QHS 09/07/13 09/21/20 09/24/20 History Prazosin 50 mg PO QHS 04/26/15 09/21/20 09/24/20 History oxyCODONE [roxiCODONE] 10 mg PO TID PRN 08/11/18 09/21/20 09/24/20 History Tamsulosin HCl [Flomax] 0.4 mg PO DAILY 08/16/18 09/21/20 09/24/20 History busPIRone [Buspar] 10 mg PO TID 08/16/18 09/21/20 09/24/20 History Oxybutynin Chloride [Ditropan Xl] 10 mg PO QDAY 09/21/20 09/21/20 09/24/20 History Thioridazine (Nf) [Mellaril (Nf)] 100 mg PO TID 09/21/20 09/21/20 09/24/20 History traMADoL [Ultram 50 MG tab] 50 mg PO Q6HR PRN 09/21/20 09/21/20 09/24/20 History Oxycodone HCl/Acetaminophen 1 each PO Q6HR PRN #30 tablet 09/26/20 Unknown Rx [Percocet 7.5/325 mg] cefUROXime [Ceftin] 250 mg PO Q12H #14 tablet 02/13/21 Unknown Rx ED Physical Exam - General Limitations: No Limitations, Physical Limitation General appearance: alert, in no apparent distress, obese - Head Head exam: Present: atraumatic, normocephalic - Eye Eye exam: Present: normal appearance. Absent: scleral icterus - ENT ENT exam: Present: mucous membranes moist - Neck Neck exam: Present: normal inspection - Respiratory Respiratory exam: Present: normal lung sounds bilaterally. Absent: respiratory distress - Cardiovascular Cardiovascular Exam: Present: regular rate, normal rhythm. Absent: systolic murmur, diastolic murmur, rubs, gallop - GI/Abdominal GI/Abdominal exam: Present: soft, normal bowel sounds. Absent: distended, tenderness, guarding, rebound, rigid, organomegaly, mass, bruit, pulsatile mass, hernia - Rectal Rectal exam: Present: deferred - Extremities Exam Extremities exam: Present: normal inspection - Back Exam Back exam: Present: normal inspection - Neurological Exam Neurological exam: Present: alert, oriented X3, CN II-XII intact. Absent: motor sensory deficit - Psychiatric Psychiatric exam: Present: normal affect, normal mood - Skin Skin exam: Present: warm, dry, intact, normal color. Absent: rash ED Course Vital Signs 02/13/21 02/13/21 02/13/21 12:46 12:50 14:46 Temperature 98.2 F Pulse Rate 72 60 Respiratory 20 20 18 Rate Blood Pressure Blood Pressure 188/105 187/94 [Left] O2 Sat by Pulse 95 95 94 Oximetry 02/13/21 02/13/21 16:07 16:59 Temperature Pulse Rate 82 60 Respiratory 16 Rate Blood Pressure 188/100 Blood Pressure 181/85 [Left] O2 Sat by Pulse 94 Oximetry - Reevaluation(s) Reevaluation #1: Nurse was concerned that the patient was sweaty. I went to see him and he was no longer sweating. There was some sweat on his sheets however. Patient tells me that he has "weaned myself off my oxycodone". He states that he gets sweaty whenever he does this. He is bit hypertensive as well. I believe he is having opioid withdrawal. He is however coherent and otherwise hemodynamically stable. 02/13/21 14:57 Reevaluation #2: Patient states he has a history of hypertension. He is not on medication. He will be given a small dose of labetalol now and a prescription for amlodipine. 02/13/21 15:50 ED Medical Decision Making - Lab Data Result diagrams: 02/13/21 14:34 02/13/21 14:34 Laboratory Results - last 24 hr 02/13/21 14:34 Sodium 136 L Potassium 4.4 Chloride 98.5 Carbon Dioxide 28 Anion Gap 14 BUN 7 L Creatinine 1.0 Estimated GFR > 60 BUN/Creatinine Ratio 7 Glucose 100 Calcium 10.0 Total Bilirubin 0.60 Direct Bilirubin < 0.2 AST 31 ALT 15 Alkaline Phosphatase 98 Total Protein 8.9 H Albumin 4.6 Albumin/Globulin Ratio 1.1 Lipase 13 Laboratory Results - last 24 hr 02/13/21 02/13/21 02/13/21 14:34 14:34 14:34 WBC 7.1 RBC 6.28 H Hgb 18.7 H Hct 55.4 H MCV 88 MCH 30 MCHC 34 RDW 15.2 Plt Count 296 Mcmullen % (Auto) Radiologic Tech PT 12.4 INR 0.94 Sodium 136 L Potassium 4.4 Chloride 98.5 Carbon Dioxide 28 Anion Gap 14 BUN 7 L Creatinine 1.0 Estimated GFR > 60 BUN/Creatinine Ratio 7 Glucose 100 Calcium 10.0 Total Bilirubin 0.60 Direct Bilirubin < 0.2 Indirect Bilirubin 0.4 AST 31 ALT 15 Alkaline Phosphatase 98 Total Protein 8.9 H Albumin 4.6 Albumin/Globulin Ratio 1.1 Lipase 13 Urine Color Urine Turbidity Urine pH Ur Specific [place] Urine Protein Urine Glucose (UA) Urine Ketones Urine Blood Urine Nitrite Urine Bilirubin Urine Urobilinogen Ur Leukocyte Esterase Urine WBC (Auto) Urine RBC (Auto) Urine Mucus 02/13/21 Unknown WBC RBC Hgb Hct MCV MCH MCHC RDW Plt Count [place] % (Auto) PT INR Sodium Potassium Chloride Carbon Dioxide Anion Gap BUN Creatinine Estimated GFR BUN/Creatinine Ratio Glucose Calcium Total Bilirubin Direct Bilirubin Indirect Bilirubin AST ALT Alkaline Phosphatase Total Protein Albumin Albumin/Globulin Ratio Lipase Urine Color Risa Urine Turbidity Clear Urine pH 7.0 Ur Specific [place] 1.021 Urine Protein 100 mg/dl Urine Glucose (UA) Neg Urine Ketones Neg Urine Blood Mod Urine Nitrite Pos Urine Bilirubin Neg Urine Urobilinogen 4.0 Ur Leukocyte Esterase Neg Urine WBC (Auto) 2.0 Urine RBC (Auto) > 182.0 Urine Mucus 1+ - Radiology Data IMPRESSION: 1. Hepatomegaly with diffuse hepatic steatosis. 2. 4.4 cm simple hepatic cyst of the right hepatic lobe. 3. Mild distention of the common bile duct measuring 10 mm. No evidence of filling defect or calcified gallstones. 4. No acute cholecystitis. Critical care attestation.: If time is entered above; I have spent that time in minutes in the direct care of this critically ill patient, excluding procedure time. ED Disposition Clinical Impression: Hemorrhagic cystitis, Opioid withdrawal, Uncontrolled hypertension Constipation Qualifiers: Constipation type: unspecified constipation type Qualified Code(s): K59.00 - Constipation, unspecified Disposition: - TO HOME OR SELFCARE Is pt being admited?: No Does the pt Need Aspirin: No Condition: Stable Instructions: Constipation, Adult, [id number], Constipation, Adult, Urinary Tract Infection, Adult, Urine Culture and Sensitivity Testing, Opioid Withdrawal, Hypertension (ED) Additional Instructions: Follow-up with your primary care physician Dr. Alvarez tomorrow. Return to the emergency department any acute change or problem. You may take the mag citrate at home. Rx as directed. Return any acute change or problem. Prescriptions: cefUROXime [Ceftin] 250 mg PO Q12H #14 tablet Referrals: PRIMARY CAREMD [Primary Care Provider] - 3-5 Days PIERO ALVAREZ MD [Staff Physician] - 24 Hours [facility] [Provider Group] - 3-5 Days Time of Disposition: 15:54
--- NOTE | 2021-02-13 14:50 | Ultrasound Report ---
ULTRASOUND ABDOMEN, COMPLETE INDICATION / CLINICAL INFORMATION: Abdominal Pain, no bowel movt 2 days. COMPARISON: CT abdomen and pelvis dated 08/26/2018 FINDINGS: PANCREAS: No significant abnormality. ABDOMINAL AORTA: No significant abnormality. IVC: No significant abnormality. LIVER: Hepatomegaly with CC dimension measuring 20.0 cm. Minimally diffuse increased echogenicity. La rge 4.4 cm simple cyst noted of the right hepatic lobe. GALLBLADDER: No significant abnormality. BILE DUCTS: No significant abnormality. Common bile duct measures 10 mm. KIDNEYS: Right: No significant abnormality. Left: Numerous left simple renal cysts, the largest prabha uring 8 mm. SPLEEN: No significant abnormality. FREE FLUID: None. ADDITIONAL FINDINGS: None. IMPRESSION: 1. Hepatomegaly with diffuse hepatic steatosis. 2. 4.4 cm simple hepatic cyst of the right hepatic lobe. 3. Mild distention of the common bile duct measuring 10 mm. No evidence of filling defect or calcifi ed gallstones. 4. No acute cholecystitis. Signer Name: Juan Olmos MD Signed: 02/13/2021 2:46 PM Workstation Name: [id number]
[2021-02-13 14:54] LABS: Hematocrit 55.4 % (35.5-45.6); Hemoglobin 18.7 gm/dl (11.8-15.2); Mean Corpuscular HGB Conc 34 % (32-34); Mean Corpuscular Volume 88 fl (84-94); Platelet Count 296 K/mm3 (140-440); Red Blood Count 6.28 M/mm3 (3.65-5.03); Red Cell Distribution Width 15.2 % (13.2-15.2)
[2021-02-13 15:13] LABS: Alanine Aminotransferase 15 units/L (7-56); Albumin 4.6 g/dL (3.9-5); BUN/Creatinine Ratio 7; Bilirubin,Direct < 0.2 mg/dL (0-0.2); Blood Urea Nitrogen 7 mg/dL (9-20); Hemolysis Index 42
--- NOTE | 2021-02-13 15:14 | XRay Report ---
ABDOMEN 1 VIEW INDICATION / CLINICAL INFORMATION: abd pain. COMPARISON: None available. FINDINGS: Large colonic stool burden, greatest in the right colon. Bowel gas pattern is nonobstructive. No free air is detected. Lung bases are clear. No acute osseous findings. IMPRESSION: Large colonic stool burden, compatible with constipation. No acute abnormality identified. Signer Name: Ramakrishna Gabriel MD Signed: 02/13/2021 3:09 PM Workstation Name: [id number]
[2021-02-13 15:33] LABS: INR 0.94 (0.87-1.13)
[2021-02-13 15:34] LABS: Bilirubin,Urine NEG (Negative); Blood,Urine MOD (Negative); Color,Urine Amber (Yellow); Mucus,Urine 1+ /HPF
[2021-02-13 15:38] LABS: RBC,Urine > 182.0 /HPF (0.0-6.0)
[2021-02-13] MEDS ORDERED: ONDANSETRON 4 MG/2 ML INJ IV ONE (15:47)
[2021-02-13] MEDS ORDERED: cefTRIAXone/NS 1 GM/50 ML 1 GM/50 ML BAG IV ONE (15:47)
[2021-02-13] MEDS ORDERED: MORPHINE 2 MG/1 ML INJ IV ONE (15:47)
[2021-02-13] MEDS ORDERED: MAGNESIUM CITRATE 300 ML ORAL LIQD PO ONE (15:51)
[2021-02-13 16:32] LABS: Total Cells Counted 100
[2021-02-13 16:33] LABS: RBC Morphology Normal
[2021-02-13 17:02] VITALS: BP 181/85
== END 2021-02-13 17:05 | disposition home or self-care (01) ==
LOC: ED 12:25
DX: N30.01 Acute cystitis with hematuria (principal); F11.23 Opioid dependence with withdrawal; I10 Essential (primary) hypertension; I25.2 Old myocardial infarction; M19.90 Unspecified osteoarthritis, unspecified site; G43.909 Migraine, unspecified, not intractable, without status migrainosus; Z79.899 Other long term (current) drug therapy
CPT/HCPCS: 36415; 51702; 74018; 76700; 80048; 80076; 81001; 83690; 85007; 85025; 85610; 87086; 96365; 96375; 99284; J0696; J2270; J2405

== ENCOUNTER 2021-03-08 19:03 | Observation (INO) | payer MEDICARE ==
--- NOTE | 2021-03-08 19:24 | Event Note ---
ED Screening Note ED Screening Note: Patient is a 65-year-old male presents emergency room with points of chest pain, shortness of breath, lightheadedness and feeling presyncope whenever he stands up that began today He had stents placed 03/01/2021 This initial assessment/diagnostic orders/clinical plan/treatment(s) is/are subject to change based on patients health status, clinical progression and re- assessment by fellow clinical providers in the ED. Further treatment and workup at subsequent clinical providers discretion. Patient/guardian urged not to elope from the ED as their condition may be serious if not clinically assessed and managed. Initial orders include: Chest pain protocol
[2021-03-08] MEDS ORDERED: SODIUM CHLORIDE 0.9% 1000 ML 1,000 ML IV ONE ×3 (19:53→23:29)
--- NOTE | 2021-03-08 20:20 | Emergency Department Report ---
ED Dizziness HPI - General Chief Complaint: Chest Pain Stated Complaint: CHEST PAIN Time Seen by Provider: 03/08/21 19:23 Source: patient, EMS Mode of arrival: Wheelchair Limitations: No Limitations - History of Present Illness Initial Comments: Chief complaint: "I have been feeling bad. Dizzy. Too weak to walk. Chest pain shortness of breath." HPI: This is a 65-year-old male with history of hyperlipidemia, hypertension, CAD, NM, recent PCI cardiac stent to the LAD 7 days ago on March 01, TIGIST, chronic back pain who presents with dizziness upon standing. He felt extremely weak. He felt like he was having adverse effect of some medication. He also had dull intermittent chest pain since 10 AM this morning. 6 out of 10 in severity. With shortness of breath. Twice he stood up today and fell right back down in his chair. He has been unable to walk. He did not feel well after being discharged from hospital. He left earlier than advised. He is concerned that his healthcare insurance would not cover his length of stay. According to cardiac cath report on March 01, patient had stent deployed to the distal LAD. Mr. Andino informed me that he was evaluated by his primary installation service representative Dr. Camacho today. He was started on a new medication. I spoke with to obtain medication list which include Atorvastatin Isosorbide nitrate Tramadol Oxybutynin Losartan Clopidogrel Carvedilol Lisinopril Metoprolol Famotidine Linzesse Buspirone Trazodone Tamsulosin Complaint: dizziness, other (Dizziness upon standing) -: Gradual, This morning Timing: gradual onset Description: lightheadedness, off-balance, difficulty walking History of Same: No History of Trauma: No Severity: severe Improves With: rest Worsens With: other (Standing) Associated Symptoms: chest pain, shortness of breath - Related Data Home Medications Medication Instructions Recorded Confirmed Last Taken Quetiapine Fumarate [SEROquel XR] 800 mg PO QHS 09/07/13 03/01/21 09/24/20 Prazosin 10 mg PO QHS 04/26/15 03/01/21 09/24/20 oxyCODONE [roxiCODONE] 10 mg PO TID PRN 08/11/18 03/01/21 09/24/20 Tamsulosin HCl [Flomax] 0.4 mg PO DAILY 08/16/18 03/01/21 09/24/20 busPIRone [Buspar] 10 mg PO TID 08/16/18 03/01/21 09/24/20 Oxybutynin Chloride [Ditropan Xl] 10 mg PO QDAY 09/21/20 03/01/21 09/24/20 Thioridazine (Nf) [Mellaril (Nf)] 100 mg PO TID 09/21/20 03/01/21 09/24/20 Previous Rx's Medication Instructions Recorded Last Taken Type Oxycodone HCl/Acetaminophen 1 each PO Q6HR PRN #30 tablet 09/26/20 Unknown Rx [Percocet 7.5/325 mg] AtorvaSTATin [Lipitor] 40 mg PO QHS #30 tablet 03/04/21 Unknown Rx Clopidogrel [Plavix] 75 mg PO QDAY #30 tablet 03/04/21 Unknown Rx Famotidine [Pepcid] 20 mg PO BID #60 tablet 03/04/21 Unknown Rx ISOSORBIDE MONOnitrate [Imdur ER] 30 mg PO QDAY #30 tablet 03/04/21 Unknown Rx Metoprolol [Lopressor TAB] 50 mg PO BID #60 tablet 03/04/21 Unknown Rx lisinopriL [Zestril TAB] 10 mg PO QDAY #60 tablet 03/04/21 Unknown Rx Allergies Allergy/AdvReac Type Severity Reaction Status Date / Time codeine Allergy Itching Verified 03/03/21 12:54 ED Review of Systems ROS: Stated complaint: CHEST PAIN Other details as noted in HPI Comment: All other systems reviewed and negative Constitutional: denies: fever, malaise Respiratory: shortness of breath Cardiovascular: chest pain Gastrointestinal: denies: abdominal pain, nausea, vomiting Musculoskeletal: back pain (Chronic back.), arthralgia (Chronic knee pain) ED Past Medical Hx - Past Medical History Previous Medical History?: Yes Hx Hypertension: Yes Hx CVA: Yes (4) Hx Heart Attack/AMI: Yes Hx Congestive Heart Failure: No Hx Diabetes: No Hx Deep Vein Thrombosis: No Hx Pulmonary Embolism: No Hx GERD: No Hx Liver Disease: No Hx Renal Disease: No Hx Sickle Cell Disease: No Hx Arthritis: Yes Hx Headaches / Migraines: Yes (Migraines) Hx Seizures: No Hx Kidney Stones: No Hx Psychiatric Treatment: Yes (PTSD) Hx Asthma: No Hx COPD: No Hx Tuberculosis: No Hx Dementia: Yes Hx HIV: No Additional medical history: "IBS" - Surgical History Past Surgical History?: Yes Hx Open Heart Surgery: No Hx Pacemaker: No Hx Cholecystectomy: No Hx Appendectomy: No Hx Breast Surgery: No Additional Surgical History: lap band, penile implant - Social History Smoking Status: Never Smoker Substance Use Type: None - Medications Home Medications: Home Medications Medication Instructions Recorded Confirmed Last Taken Type Quetiapine Fumarate [SEROquel XR] 800 mg PO QHS 09/07/13 03/01/21 09/24/20 H istory Prazosin 10 mg PO QHS 04/26/15 03/01/21 09/24/20 History oxyCODONE [roxiCODONE] 10 mg PO TID PRN 08/11/18 03/01/21 09/24/20 History Tamsulosin HCl [Flomax] 0.4 mg PO DAILY 08/16/18 03/01/21 09/24/20 History busPIRone [Buspar] 10 mg PO TID 08/16/18 03/01/21 09/24/20 History Oxybutynin Chloride [Ditropan Xl] 10 mg PO QDAY 09/21/20 03/01/21 09/24/20 History Thioridazine (Nf) [Mellaril (Nf)] 100 mg PO TID 09/21/20 03/01/21 09/24/20 History Oxycodone HCl/Acetaminophen 1 each PO Q6HR PRN #30 tablet 09/26/20 03/01/21 Unknown Rx [Percocet 7.5/325 mg] AtorvaSTATin [Lipitor] 40 mg PO QHS #30 tablet 03/04/21 Unknown Rx Clopidogrel [Plavix] 75 mg PO QDAY #30 tablet 03/04/21 Unknown Rx Famotidine [Pepcid] 20 mg PO BID #60 tablet 03/04/21 Unknown Rx ISOSORBIDE MONOnitrate [Imdur ER] 30 mg PO QDAY #30 tablet 03/04/21 Unknown Rx Metoprolol [Lopressor TAB] 50 mg PO BID #60 tablet 03/04/21 Unknown Rx lisinopriL [Zestril TAB] 10 mg PO QDAY #60 tablet 03/04/21 Unknown Rx ED Physical Exam - General Limitations: No Limitations General appearance: alert, in no apparent distress - Head Head exam: Present: atraumatic, normocephalic - Eye Eye exam: Present: normal appearance - ENT ENT exam: Present: mucous membranes moist - Neck Neck exam: Present: normal inspection, full ROM - Respiratory Respiratory exam: Present: normal lung sounds bilaterally. Absent: respiratory distress, wheezes, rales, rhonchi - Cardiovascular Cardiovascular Exam: Present: regular rate, normal rhythm, normal heart sounds. Absent: systolic murmur, diastolic murmur, rubs, gallop - GI/Abdominal GI/Abdominal exam: Present: soft, normal bowel sounds. Absent: distended, tenderness, guarding, rebound - Rectal Rectal exam: Present: deferred - Extremities Exam Extremities exam: Present: normal inspection - Neurological Exam Neurological exam: Present: alert, oriented X3 - Psychiatric Psychiatric exam: Present: normal affect, normal mood - Skin Skin exam: Present: warm, dry, intact, normal color. Absent: rash ED Course Vital Signs 03/08/21 03/08/21 03/08/21 19:45 19:47 20:00 Temperature 98.3 F Pulse Rate 60 59 L Respiratory 16 14 Rate Blood Pressure 63/33 74/38 86/41 O2 Sat by Pulse 92 97 Oximetry 03/08/21 03/08/21 03/08/21 20:16 20:30 20:36 Temperature Pulse Rate 88 61 Respiratory 11 L 23 16 Rate Blood Pressure 86/41 89/38 O2 Sat by Pulse 97 93 95 Oximetry 03/08/21 03/08/21 03/08/21 21:00 21:30 22:00 Temperature Pulse Rate 64 59 L 58 L Respiratory 14 8 L 12 Rate Blood Pressure 77/39 85/44 84/49 O2 Sat by Pulse 94 92 96 Oximetry 03/08/21 03/08/21 03/08/21 22:22 22:30 23:00 Temperature Pulse Rate 56 L 56 L 60 Respiratory 27 H 20 19 Rate Blood Pressure 86/48 96/55 82/54 O2 Sat by Pulse 97 93 95 Oximetry 03/08/21 03/09/21 03/09/21 23:30 01:18 01:32 Temperature Pulse Rate 59 L Respiratory 29 H Rate Blood Pressure 94/55 100/57 100/57 O2 Sat by Pulse 97 78 L Oximetry ED Medical Decision Making - Lab Data Result diagrams: 03/08/21 19:47 03/08/21 19:47 - EKG Data -: EKG Interpreted by Me EKG shows normal: sinus rhythm, axis Rate: normal - EKG Data 03/08/21 20:26 EKG obtained 1937 EKG interpreted by me Normal sinus rhythm rate 60 bpm left axis deviation ST elevation anterior leads T wave inversion anterior leads ST elevation more prominent in the anterior leads as compared to 03/01/2021 ST depression, T wave inversions previously seen on March 01 in leads I II aVL now flattened - Radiology Data Radiology results: report reviewed Patient Name: YOKO ANDINO Gender: Male Date of : 1955 Referring Provider: EMANUEL MONROE Organization: [facility] Accession Number: [id number] Requested Date: March 08, 2021 20:07 Report Status: Final Requested Procedure: 1 Procedure Description: XR chest 1V ap Modality: XR Findings Reporting MD: Rivera Koroma Dictation Time: March 08, 2021 19:34 Yard Supervisor Cotton Gin: Not available Lawnmower Repair Mechanic Date: CHEST 1 VIEW INDICATION / CLINICAL INFORMATION: chest pain dyspnea. COMPARISON: 03/02/2021 FINDINGS: SUPPORT DEVICES: None. HEART / MEDIASTINUM: No significant abnormality. LUNGS / PLEURA: Mild pulmonary vascular congestion No pneumothorax. ADDITIONAL FINDINGS: No significant additional findings. IMPRESSION: Mild pulmonary vascular congestion Signer Name: Rivera Koroma MD FACR - Medical Decision Making Upon arrival I was concerned for ST elevation NM. However I recognized patient's name. I realized that he had recent cardiac intervention. I spoke with Dr. Naidu on-call installation service representative for previous interventionalist Dr. Elizabeth. He recommended sending EKG to corn grinder real estate operations manager. I spoke with Dr. Méndez who spoke directly with Dr. Elizabeth. Dr. Elizabeth reassured that patient did not have a lesion that would account for new obstruction. I reviewed cardiac catheterization report. I agree with Dr. Méndez and Dr. Eliazbeth's assessment that patient should not have severe coronary artery obstruction of the LAD that will cause ST elevation NM. His presentation does not appear to be that of acute myocardial infarction EKG ST morphology today did appear different from EKG obtained on March 01. Hypotension and hypoxia is called for concern. Differential diagnosis includes acute CHF, pulmonary embolism, adverse medication effect 1. Dizziness upon standing, hypotension:, bradycardia: I suspect bradycardia, h ypotension due to polypharmacy. Mr. Andino is taking two beta blockers, ACEI, ARB. no persistent discomfort to suspect pulmonary embolism. Normal BNP, cardiogenic shock with patient's lack of distress is not detected/suspected. After 3 L of IV fluid, patient was ambulatory to the restroom without assistance. Repeat blood pressure 100/57 sitting. Patient is on 6 medications which would affect blood pressure including losartan, carvedilol, lisinopril, metoprolol, isosorbide Dinitrate, tamsulosin. Mr. Andino explained that he was given a new medication today by his installation service representative 2. chest pain/dyspnea non-descript symptoms which do not appear to be a concern for patient, he can to the hospital because he "felt bad". No indication of ACS or overt pulmonary edema, troponin x 2 negativve 3. BRUCE: GFR 37, Cr 2.2, previous 1.1, vasomotor nephropathy due to use of both ABRAHAM inihibitor and ARB, Critical Care Time: Yes Critical care time in (mins) excluding proc time.: 40 Critical care attestation.: If time is entered above; I have spent that time in minutes in the direct care of this critically ill patient, excluding procedure time. 40 minutes of critical care time excluding procedures were used in the care of the patient. I came immediately to the bedside upon patient's arrival. . I discussed treatment plan with the nursing team members. I reviewed electronic record. I kept the family members informed. Patient required multiple interventions and reassessments. I spoke with multiple consultants including installation service representative on-call, interventionalist on-call and hospitalist. ED Disposition Clinical Impression: Polypharmacy, Medication adverse effect, Hypotension, BRUCE (acute kidney injury), CAD (coronary artery disease) Disposition: 09 OP ADMIT IP TO THIS HOSP Is pt being admited?: Yes Does the pt Need Aspirin: No Condition: Stable
[2021-03-08 20:26] LABS: Hematocrit 50.6 % (35.5-45.6); Hemoglobin 16.8 gm/dl (11.8-15.2); Mean Corpuscular HGB Conc 33 % (32-34); Mean Corpuscular Volume 91 fl (84-94); Platelet Count 321 K/mm3 (140-440); Red Blood Count 5.55 M/mm3 (3.65-5.03); Red Cell Distribution Width 15.3 % (13.2-15.2)
--- NOTE | 2021-03-08 20:38 | XRay Report ---
CHEST 1 VIEW INDICATION / CLINICAL INFORMATION: chest pain dyspnea. COMPARISON: 03/02/2021 FINDINGS: SUPPORT DEVICES: None. HEART / MEDIASTINUM: No significant abnormality. LUNGS / PLEURA: Mild pulmonary vascular congestion No pneumothorax. ADDITIONAL FINDINGS: No significant additional findings. IMPRESSION: Mild pulmonary vascular congestion Signer Name: Rivera Koroma MD FACR Signed: 03/08/2021 8:34 PM Workstation Name: [id number]
[2021-03-08 20:41] LABS: INR 1.07 (0.87-1.13)
[2021-03-08 20:42] LABS: Partial Thromboplastin Time 26.6 Sec. (24.2-36.6)
[2021-03-08 21:14] LABS: Alanine Aminotransferase 17 units/L (7-56); Albumin 4.1 g/dL (3.9-5); BUN/Creatinine Ratio 7; Blood Urea Nitrogen 15 mg/dL (9-20); Calcium 9.1 mg/dL (8.4-10.2); Hemolysis Index 31
[2021-03-08 22:07] LABS: Total Cells Counted 100
[2021-03-08 22:08] LABS: RBC Morphology Normal
--- NOTE | 2021-03-09 03:21 | History and Physical Report ---
History of Present Illness Date of examination: 03/09/21 Date of admission: 03/09/21 01:51 Chief complaint: dizziness Hypotension History of present illness: HPI: This is a 65-year-old male with history of hyperlipidemia, hypertension, CAD, [place], recent PCI cardiac stent to the LAD 7 days ago on March 01, TIGIST, chronic back pain who presents with dizziness upon standing. He felt extremely weak. He felt like he was having adverse effect of some medication. He also had dull intermittent chest pain since 10 AM this morning. 6 out of 10 in severity. With shortness of breath. Twice he stood up today and fell right back down in his chair. He has been unable to walk. He did not feel well after being discharged from hospital. He left earlier than advised. He is concerned that his healthcare insurance would not cover his length of stay. ED work-up shows WBC 5.41 hemoglobin 16.8 platelet 321, sodium 134, potassium four 4.5 creatinine 2.2 Glucose serum 95 and calcium 9.1 reported 0.010 chest x-rays done mild pulmonary vascular congestion. Patient seen in ED at bedside patient alert and oriented x3. At time of assessment patient denied chest pain, shortness of breath, and nausea and vomiting. Patient reported a history of recent stents placement. Patient reports also history of penile implant x2. Patient not in acute distress at the time of assessment. Past History Past Medical History: CAD, hypertension, renal failure Past Surgical History: No surgical history Social history: no significant social history Family history: no significant family history Medications and Allergies Allergies Allergy/AdvReac Type Severity Reaction Status Date / Time codeine Allergy Itching Verified 03/03/21 12:54 Home Medications Medication Instructions Recorded Confirmed Last Taken Type Quetiapine Fumarate [SEROquel XR] 800 mg PO QHS 09/07/13 03/01/21 09/24/20 History Prazosin 10 mg PO QHS 04/26/15 03/01/21 09/24/20 History oxyCODONE [roxiCODONE] 10 mg PO TID PRN 08/11/18 03/01/21 09/24/20 History Tamsulosin HCl [Flomax] 0.4 mg PO DAILY 08/16/18 03/01/21 09/24/20 History busPIRone [Buspar] 10 mg PO TID 08/16/18 03/01/21 09/24/20 History Oxybutynin Chloride [Ditropan Xl] 10 mg PO QDAY 09/21/20 03/01/21 09/24/20 History Thioridazine (Nf) [Mellaril (Nf)] 100 mg PO TID 09/21/20 03/01/21 09/24/20 History Oxycodone HCl/Acetaminophen 1 each PO Q6HR PRN #30 tablet 09/26/20 03/01/21 Unknown Rx [Percocet 7.5/325 mg] AtorvaSTATin [Lipitor] 40 mg PO QHS #30 tablet 03/04/21 Unknown Rx Clopidogrel [Plavix] 75 mg PO QDAY #30 tablet 03/04/21 Unknown Rx Famotidine [Pepcid] 20 mg PO BID #60 tablet 03/04/21 Unknown Rx ISOSORBIDE MONOnitrate [Imdur ER] 30 mg PO QDAY #30 tablet 03/04/21 Unknown Rx Metoprolol [Lopressor TAB] 50 mg PO BID #60 tablet 03/04/21 Unknown Rx lisinopriL [Zestril TAB] 10 mg PO QDAY #60 tablet 03/04/21 Unknown Rx Review of Systems Ears, nose, mouth and throat: no epistaxis, no bleeding gums Cardiovascular: lightheadedness Respiratory: no wheezing Gastrointestinal: no abdominal pain, no melena Genitourinary Male: no hematuria Rectal: no itching, no hemorrhoids Musculoskeletal: no muscle weakness Integumentary: no rash, no pruritis Neurological: head injury Psychiatric: anxiety Endocrine: cold intolerance Hematologic/Lymphatic: no easy bruising, no easy bleeding Allergic/Immunologic: no urticaria Exam - Constitutional Vitals: Temp Pulse Resp BP Pulse Ox 98.3 F 65 16 102/54 95 03/08/21 19:45 03/09/21 02:58 03/09/21 02:58 03/09/21 02:58 03/09/21 02:58 General appearance: Present: mild distress, well-nourished - EENT Eyes: Present: PERRL ENT: hearing intact, clear oral mucosa - Neck Neck: Present: supple, normal ROM - Respiratory Respiratory effort: normal Respiratory: bilateral: CTA - Cardiovascular Heart rate: 65 Heart Sounds: Present: S1 & S2. Absent: rub, click - Extremities Extremities: pulses symmetrical, No edema Peripheral Pulses: within normal limits - Abdominal General gastrointestinal: Present: soft, non-tender, non-distended, normal bowel sounds Male genitourinary: Present: normal - Integumentary Integumentary: Present: clear, warm, dry - Musculoskeletal Musculoskeletal: gait normal, strength equal bilaterally - Psychiatric Psychiatric: appropriate mood/affect, intact judgment & insight, cooperative - Neurologic Neurologic: CNII-XII intact, moves all extremities - Allied Health Allied health notes reviewed: nursing HEART Score - HEART Score Troponin: Troponin T < 0.010 ng/mL (0.00-0.029) 03/09/21 00:52 Results - Labs CBC & Chem 7: 03/08/21 19:47 03/08/21 19:47 Labs: Abnormal lab results 03/08/21 03/08/21 Range/Units 19:47 19:47 RBC 5.55 H (3.65-5.03) M/mm3 Hgb 16.8 H (11.8-15.2) gm/dl Hct 50.6 H (35.5-45.6) % RDW 15.3 H (13.2-15.2) % Monocytes % (Manual) 18.0 H (0.0-7.3) % Monocytes # (Manual) 1.0 H (0.0-0.8) K/mm3 Sodium 134 L (137-145) mmol/L Creatinine 2.2 H (0.8-1.3) mg/dL Assessment and Plan - Patient Problems (1) Hypotension Current Visit: Yes Status: Acute Plan to address problem: Low blood pressure possibly secondary to multiple antihypertensive drugs Patient admits taking blood pressure medicine from 2 doctors to get Normal saline boluses given in ED Blood pressure is presently stable Sales Training Manager consulted patient had a recent stent placement. EKG done showed some changes from previous EKG (2) BRUCE (acute kidney injury) Current Visit: Yes Status: Acute Plan to address problem: Likely secondary to hypotension Gentle IV hydration with normal saline Monitor kidney function Renal ultrasound follow-up with results Consults switchboard operator Sodium osmolarity and sodium random (3) CAD (coronary artery disease) Current Visit: Yes Status: Chronic Qualifiers: Plan to address problem: Patient had a recent stent placement Cardiology consult resume home medication Continue antiplatelets and statin (4) HTN (hypertension) Current Visit: No Status: Acute Qualifiers: Plan to address problem: History of hypertension on multiple antihypertensive. Hold blood pressure medicine for nowpatient with no blood pressure levels (5) DVT prophylaxis Current Visit: No Status: Acute Plan to address problem: Subcutaneous heparin
[2021-03-09] MEDS ORDERED: ONDANSETRON 4 MG/2 ML INJ IV PRN (03:31)
[2021-03-09] MEDS ORDERED: MAGNESIUM HYDROXIDE (MOM) ORAL LIQD UDC PO PRN (03:31)
[2021-03-09] MEDS ORDERED: ALUM-MAG HYDROXIDE-SIMETHICONE 200-200-20MG/5ML ORAL LIQD 30 ML PO PRN (03:31)
[2021-03-09] MEDS ORDERED: ACETAMINOPHEN 325 MG TAB PO PRN (03:31)
[2021-03-09] MEDS ORDERED: hydrALAZINE 20 MG/1 ML INJ IV PRN (04:01)
[2021-03-09] MEDS: HEPARIN 5,000 UNIT/1 ML VIAL SUB-Q SCH ×3 (05:47→22:04)
--- NOTE | 2021-03-09 08:08 | Consultation ---
History of Present Illness Consult date: 03/09/21 Consult reason: other (Dizziness) History of present illness: 65 year old AAM admitted with dizziness and hypotension. Patient s/p PCI to distal LAD 1 week ago, started on multiple antihypertensive medications including lisinopril, metoprolol and Imdur. Patient denies chest pain or shortness of breath. Patient denies N/V/diarrhea. ECG showing no interval changes when compared to study done 1 week ago. Troponin negative x 3. Past History Past Medical History: CAD, hypertension, renal failure Past Surgical History: No surgical history Social history: no significant social history Family history: no significant family history Medications and Allergies Allergies Allergy/AdvReac Type Severity Reaction Status Date / Time codeine Allergy Itching Verified 03/03/21 12:54 Home Medications Medication Instructions Recorded Confirmed Last Taken Type Quetiapine Fumarate [SEROquel XR] 800 mg PO QHS 09/07/13 03/01/21 09/24/20 History Prazosin 10 mg PO QHS 04/26/15 03/01/21 09/24/20 History oxyCODONE [roxiCODONE] 10 mg PO TID PRN 08/11/18 03/01/21 09/24/20 History Tamsulosin HCl [Flomax] 0.4 mg PO DAILY 08/16/18 03/01/21 09/24/20 History busPIRone [Buspar] 10 mg PO TID 08/16/18 03/01/21 09/24/20 History Oxybutynin Chloride [Ditropan Xl] 10 mg PO QDAY 09/21/20 03/01/21 09/24/20 History Thioridazine (Nf) [Mellaril (Nf)] 100 mg PO TID 09/21/20 03/01/21 09/24/20 History Oxycodone HCl/Acetaminophen 1 each PO Q6HR PRN #30 tablet 09/26/20 03/01/21 Unknown Rx [Percocet 7.5/325 mg] AtorvaSTATin [Lipitor] 40 mg PO QHS #30 tablet 03/04/21 Unknown Rx Clopidogrel [Plavix] 75 mg PO QDAY #30 tablet 03/04/21 Unknown Rx Famotidine [Pepcid] 20 mg PO BID #60 tablet 03/04/21 Unknown Rx ISOSORBIDE MONOnitrate [Imdur ER] 30 mg PO QDAY #30 tablet 03/04/21 Unknown Rx Metoprolol [Lopressor TAB] 50 mg PO BID #60 tablet 03/04/21 Unknown Rx lisinopriL [Zestril TAB] 10 mg PO QDAY #60 tablet 03/04/21 Unknown Rx Active Meds: Active Medications Acetaminophen (Acetaminophen 325 Mg Tab) 650 mg PO Q4H PRN PRN Reason: Pain MILD(1-3)/Fever >100.5/MUÑIZ Al Hydrox/Mg Hydrox/Simethicone (Alum-Mag Hydroxide-Simethicone [id number]/5ml Oral Liqd 30 Ml) 30 ml PO Q4H PRN PRN Reason: Indigestion Aspirin (Aspirin Ec 81 Mg Tab) 81 mg PO QDAY [facility] Atorvastatin Calcium (Atorvastatin 20 Mg Tab) 40 mg PO QHS [facility] Buspirone HCl (Buspirone 10 Mg Tab) 10 mg PO DAILY [facility] Clopidogrel Bisulfate (Clopidogrel 75 Mg Tab) 75 mg PO QDAY [facility] Famotidine (Famotidine 20 Mg/2 Ml Inj) 20 mg IV QAM [facility] Heparin Sodium (Porcine) (Heparin 5,000 Unit/1 Ml Vial) 5,000 unit SUB-Q Q8HR [facility] Last Admin: 03/09/21 05:47 Dose: 5,000 unit Documented by: Hydralazine HCl (Hydralazine 20 Mg/1 Ml Inj) 5 mg IV Q4H PRN PRN Reason: Hypertension Magnesium Hydroxide (Magnesium Hydroxide (Mom) Oral Liqd Udc) 30 ml PO Q4H PRN PRN Reason: Constipation Ondansetron HCl (Ondansetron 4 Mg/2 Ml Inj) 4 mg IV Q8H PRN PRN Reason: Nausea And Vomiting Prazosin HCl (Prazosin 5 Mg Cap) 10 mg PO DAILY [facility] Quetiapine Fumarate (Quetiapine 200 Mg Tab) 400 mg PO DAILY [facility] Senna (Sennosides 8.6 Mg Tab) 8.6 mg PO Q12HR [facility] Tamsulosin HCl (Tamsulosin 0.4 Mg Cap) 0.4 mg PO QDAY [facility] Review of Systems All systems: negative Physical Examination Vital Signs Temp Pulse Resp BP Pulse Ox 98.3 F 60 16 63/33 92 03/08/21 19:45 03/08/21 19:45 03/08/21 19:45 03/08/21 19:45 03/08/21 19:45 General appearance: no acute distress Neck: Positive: neck supple Cardiac: Positive: Reg Rate and Rhythm Lungs: Positive: Normal Exam Abdomen: Positive: Soft Extremities: Absent: edema Results 03/08/21 19:47 03/08/21 19:47 Cardiac Enzymes 03/08/21 Range/Units 19:47 AST 20 (5-40) units/L Coagulation 03/08/21 Range/Units 19:47 PT 13.7 (12.2-14.9) Sec. INR 1.07 (0.87-1.13) APTT 26.6 (24.2-36.6) Sec. CBC 03/08/21 Range/Units 19:47 WBC 5.4 (4.5-11.0) K/mm3 RBC 5.55 H (3.65-5.03) M/mm3 Hgb 16.8 H (11.8-15.2) gm/dl Hct 50.6 H (35.5-45.6) % Plt Count 321 (140-440) K/mm3 Comprehensive Metabolic Panel 03/08/21 Range/Units 19:47 Sodium 134 L (137-145) mmol/L Potassium 4.5 (3.6-5.0) mmol/L Chloride 98.7 (98-107) mmol/L Carbon Dioxide 26 (22-30) mmol/L BUN 15 (9-20) mg/dL Creatinine 2.2 H (0.8-1.3) mg/dL Glucose 95 (75-100) mg/dL Calcium 9.1 (8.4-10.2) mg/dL AST 20 (5-40) units/L ALT 17 (7-56) units/L Alkaline Phosphatase 97 (35-129) units/L Total Protein 7.8 (6.3-8.2) g/dL Albumin 4.1 (3.9-5) g/dL EKG interpretations - Telemetry EKG Rhythm: Sinus Rhythm Assessment and Plan Hypotension Secondary to BP meds Dizziness Acute renal failure Coronary artery disease s/p PCI to distal LAD 02/2021 70-80% OM stenosis planned for outpatient staged PCI Normal LVEF by LV gram 02/2021 and by echo 07/2020 Obstructive sleep apnea Recommendations: IV Hydration Resume aspirin, plavix and lipitor Hold on imdur, metoprolol and lisinopril for the time being No further invasive cardiac work-up is needed
[2021-03-09] MEDS ORDERED: FAMOTIDINE 20 MG/2 ML INJ IV SCH (10:00)
--- NOTE | 2021-03-09 10:19 | Ultrasound Report ---
US renal BILAT INDICATION / CLINICAL INFORMATION: claus. COMPARISON: None available. FINDINGS: Right kidney measures 11.7 cm and the left kidney measures 10.0 cm. No focal renal abnormality is see n. There is no evidence of hydronephrosis. The bladder is normal. IMPRESSION: Negative exam Signer Name: Rivera Koroma MD FACR Signed: 03/09/2021 10:15 AM Workstation Name: [id number]
[2021-03-09] MEDS: ASPIRIN EC 81 MG TAB PO SCH (10:48)
[2021-03-09] MEDS: TAMSULOSIN 0.4 MG CAP PO SCH (10:48)
[2021-03-09] MEDS: busPIRone 10 MG TAB PO SCH (10:48)
[2021-03-09] MEDS: CLOPIDOGREL 75 MG TAB PO SCH (10:48)
[2021-03-09] MEDS: SENNOSIDES 8.6 MG TAB PO SCH ×2 (10:48→22:04)
[2021-03-09] MEDS: PRAZOSIN 5 MG CAP PO SCH (10:49)
[2021-03-09] MEDS: QUEtiapine 200 MG TAB PO SCH (10:49)
[2021-03-09 15:22] LABS: BUN/Creatinine Ratio 12; Blood Urea Nitrogen 16 mg/dL (9-20); Calcium 8.6 mg/dL (8.4-10.2); Hemolysis Index 6
--- NOTE | 2021-03-09 18:50 | Event Note ---
Date: 03/09/21 Consult received Ultrasound reviewed Continue IVF
[2021-03-09] MEDS ORDERED: oxyCODONE 5 MG TAB PO PRN (22:11)
[2021-03-10] MEDS: HEPARIN 5,000 UNIT/1 ML VIAL SUB-Q SCH (05:50)
[2021-03-10 06:29] LABS: Hematocrit 47.9 % (35.5-45.6); Mean Corpuscular HGB Conc 34 % (32-34); Mean Corpuscular Volume 90 fl (84-94); Platelet Count 293 K/mm3 (140-440); Red Blood Count 5.34 M/mm3 (3.65-5.03); Red Cell Distribution Width 15.3 % (13.2-15.2)
[2021-03-10 06:31] LABS: Basophils # (Auto) 0.1 K/mm3 (0.0-0.1); Basophils % (Auto) 1.2 % (0.0-1.8); Eosinophils # (Auto) 0.1 K/mm3 (0.0-0.4); Eosinophils % (Auto) 3.9 % (0.0-4.3); Lymphocytes # (Auto) 2.4 K/mm3 (1.2-5.4); Monocytes # (Auto) 0.9 K/mm3 (0.0-0.8); Monocytes % (Auto) 17.2 % (0.0-7.3)
[2021-03-10 06:39] LABS: BUN/Creatinine Ratio 11; Blood Urea Nitrogen 13 mg/dL (9-20); Calcium 8.6 mg/dL (8.4-10.2); Hemolysis Index 13
[2021-03-10] MEDS: TAMSULOSIN 0.4 MG CAP PO SCH (09:16)
[2021-03-10] MEDS: CLOPIDOGREL 75 MG TAB PO SCH (09:16)
[2021-03-10] MEDS: busPIRone 10 MG TAB PO SCH (09:16)
[2021-03-10] MEDS: ASPIRIN EC 81 MG TAB PO SCH (09:16)
[2021-03-10] MEDS: PRAZOSIN 5 MG CAP PO SCH (09:17)
[2021-03-10] MEDS: QUEtiapine 200 MG TAB PO SCH (09:19)
[2021-03-10] MEDS: SENNOSIDES 8.6 MG TAB PO SCH (09:19)
--- NOTE | 2021-03-10 09:27 | Progress Note ---
Assessment and Plan Hypotension Resolved Secondary to BP meds Dizziness No arrhythmias on tele (sinus bradycardia - no pauses) Orthostatic dizziness Acute renal failure Resolved after IV hydration Coronary artery disease s/p PCI to distal LAD 02/2021 70-80% OM stenosis planned for outpatient staged PCI Normal LVEF by LV gram 02/2021 and by echo 07/2020 Obstructive sleep apnea Recommendations: Do not resume imdur, metoprolol and lisinopril upon discharge I also recommend discontinuing prazosin if possible Behavioral modification advised regarding good po hydration and slow changes in positions No further invasive cardiac work-up is needed Patient may go home and follow-up with his primary inspection machine tender as outpatient Subjective Date of service: 03/10/21 Principal diagnosis: Dizziness Interval history: Patient denies chest pain or shortness of breath Patient still gets dizzy when he stands up Objective Vital Signs Temp Pulse Pulse Resp BP BP Pulse Ox 03/10/21 09:17 75 141/84 03/10/21 08:00 98.3 F 75 20 141/84 100 03/10/21 04:12 98.0 F 67 20 129/80 94 03/10/21 00:14 18 03/09/21 23:37 98.2 F 59 L 20 129/64 96 03/09/21 22:05 20 03/09/21 20:23 65 03/09/21 19:58 98.2 F 65 20 113/59 98 03/09/21 16:41 98.1 F 61 20 102/59 98 03/09/21 13:00 61 03/09/21 11:03 97.7 F 65 18 130/53 98 03/09/21 10:49 66 119/51 03/09/21 10:00 66 98 - Physical Examination Neck: Positive: neck supple Cardiac: Positive: Reg Rate and Rhythm Lungs: Positive: Normal Exam Abdomen: Positive: Soft Extremities: Absent: edema - Labs and Meds CBC 03/10/21 Range/Units 05:42 WBC 5.3 (4.5-11.0) K/mm3 RBC 5.34 H (3.65-5.03) M/mm3 Hgb 16.0 H (11.8-15.2) gm/dl Hct 47.9 H (35.5-45.6) % Plt Count 293 (140-440) K/mm3 Lymph # (Auto) 2.4 (1.2-5.4) K/mm3 [place] # (Auto) 0.9 H (0.0-0.8) K/mm3 Eos # (Auto) 0.1 (0.0-0.4) K/mm3 Baso # (Auto) 0.1 (0.0-0.1) K/mm3 Comprehensive Metabolic Panel 03/09/21 03/10/21 Range/Units 14:33 05:42 Sodium 137 136 L (137-145) mmol/L Potassium 4.1 3.9 (3.6-5.0) mmol/L Chloride 105.1 102.8 (98-107) mmol/L Carbon Dioxide 23 24 (22-30) mmol/L BUN 16 13 (9-20) mg/dL Creatinine 1.3 1.2 (0.8-1.3) mg/dL Glucose 118 H 86 (75-100) mg/dL Calcium 8.6 8.6 (8.4-10.2) mg/dL
[2021-03-10] MEDS ORDERED: FAMOTIDINE 20 MG TAB PO SCH (10:00)
--- NOTE | 2021-03-10 11:23 | Discharge Summary ---
Providers - Providers Date of Admission: 03/09/21 01:51 Attending physician: CHERELLE SAVAGE MD 03/08/21 21:16 Consult to Physician [CONS] Stat Comment: Dr. Sheldon spoke with Dr. Naidu @ 1955 Consulting Provider: GREG BRIAN Physician Instructions: Reason For Exam: hypotension recent PCI 03/09/21 06:08 Consult to Physician [CONS] Routine Comment: Consulting Provider: CHANCE HINOJOSA Physician Instructions: Reason For Exam: claus Primary care physician: [employer] REPAIRER Hospitalization Reason for admission: Syncope Condition: Stable Hospital course: This is a 65-year-old male with history of hyperlipidemia, hypertension, CAD, IA, recent PCI cardiac stent to the LAD 7 days ago on March 01, TIGIST, chronic back pain who presents with dizziness upon standing. He felt extremely weak. He felt like he was having adverse effect of some medication. He also had dull intermittent chest pain since 10 AM this morning. 6 out of 10 in severity. With shortness of breath. Twice he stood up today and fell right back down in his chair. He has been unable to walk. He did not feel well after being discharged from hospital. He left earlier than advised. He is concerned that his healthcare insurance would not cover his length of stay. ED work-up shows WBC 5.41 hemoglobin 16.8 platelet 321, sodium 134, potassium four 4.5 creatinine 2.2 Glucose serum 95 and calcium 9.1 reported 0.010 chest x-rays done mild pulmonary vascular congestion. Patient seen in ED at bedside patient alert and oriented x3. At time of assessment patient denied chest pain, shortness of breath, and nausea and vomiting. Patient reported a history of recent stents placement. Patient reports also history of penile implant x2. Patient not in acute distress at the time of assessment. On admission the patient informs me that he was started on some new blood pressure medications and following taking them for the first time he had a syncopal episode. He was managed for medication induced hypotension at this morning is much improved. Renal function has also improved following IV hydration. Cardiology did evaluate the patient and recommended Do not resume imdur, metoprolol and lisinopril upon discharge I also recommend discontinuing prazosin if possible Behavioral modification advised regarding good po hydration and slow changes in positions All this was discussed with the patient is clinically stable and ready for discharge. Hypotension induced syncope Resolved Secondary to BP meds Dizziness No arrhythmias on tele (sinus bradycardia - no pauses) Orthostatic dizziness Acute renal failure secondary to vasomotor nephropathy Resolved after IV hydration Coronary artery disease s/p PCI to distal LAD 02/2021 70-80% OM stenosis planned for outpatient staged PCI Normal LVEF by LV gram 02/2021 and by echo 07/2020 Obstructive sleep apnea R Disposition: DC-01 TO HOME OR SELFCARE Final Discharge Diagnosis (Prints w/discharge instructions): Hypertension Time spent for discharge: 35 minutes Core Measure Documentation - Palliative Care Palliative Care/ Comfort Measures: Not Applicable - Core Measures Any of the following diagnoses?: none Exam - Physical Exam Narrative exam: VITAL SIGNS: Reviewed. GENERAL: The patient appears normally developed, sitting up in the chair next to bedside vital signs as documented. HEAD: No signs of head trauma. EYES: Pupils are equal. Extraocular motions intact. No nystagmus EARS: Hearing grossly intact. MOUTH: Oropharynx is normal. NECK: No adenopathy, no JVD. CHEST: Chest with clear breath sounds bilaterally. No wheezes, rales, or rhonchi. CARDIAC: Regular rate and rhythm. S1 and S2, without murmurs, gallops, or rubs. VASCULAR: No Edema. Peripheral pulses normal and equal in all extremities. ABDOMEN: Soft, non tender and non distended. No rebound or guarding, and no masses palpated. Bowel Sounds normal. MUSCULOSKELETAL: Good range of motion of all major joints. Extremities without clubbing, cyanosis or edema. NEUROLOGIC EXAM: Alert and oriented x 3 No focal sensory or strength deficits. Speech normal. Follows commands. PSYCHIATRIC: Mood normal. SKIN: detail exam as documented in skin assessment - Constitutional Vitals: Temp Pulse Resp BP Pulse Ox 98.3 F 75 20 141/84 100 03/10/21 08:00 03/10/21 09:17 03/10/21 08:00 03/10/21 09:17 03/10/21 08:00 Plan Activity: advance as tolerated, fall precautions Diet: low fat Special Instructions: record daily weights, record daily BP diary Additional Instructions: Follow with your regular electronic components assembler Follow up with: REYMUNDO RAJPUT MD [Primary Care Provider] - 7 Days EDILSON MAYS MD [Staff Physician] - 7 Days
[2021-03-10 12:04] VITALS: BP 123/71
--- NOTE | 2021-03-10 18:08 | Consultation ---
History of Present Illness - Reason for Consult Consult date: 03/10/21 acute renal failure - History of Present Illness This is a 65-year-old man with hypertension, coronary artery diseasestatus post PCI with stent to the LAD 7 days ago, hyperlipidemia who presented with chest pain, weakness and dizziness. He was subsequently admitted for further workup. Nephrology was consulted for acute kidney injury. He denied nausea, vomiting, diaphoresis and syncope. Past History Past Medical History: CAD, hypertension, renal failure Past Surgical History: No surgical history Social history: no significant social history Family history: no significant family history Medications and Allergies Allergies Allergy/AdvReac Type Severity Reaction Status Date / Time codeine Allergy Itching Verified 03/03/21 12:54 Home Medications Medication Instructions Recorded Confirmed Last Taken Type Quetiapine Fumarate [SEROquel XR] 800 mg PO QHS 09/07/13 03/01/21 09/24/20 History Tamsulosin HCl [Flomax] 0.4 mg PO DAILY 08/16/18 03/01/21 09/24/20 History busPIRone [Buspar] 10 mg PO TID 08/16/18 03/01/21 09/24/20 History Oxybutynin Chloride [Ditropan Xl] 10 mg PO QDAY 09/21/20 03/01/21 09/24/20 H istory Thioridazine (Nf) [Mellaril (Nf)] 100 mg PO TID 09/21/20 03/01/21 09/24/20 History AtorvaSTATin [Lipitor] 40 mg PO QHS #30 tablet 03/04/21 Unknown Rx Clopidogrel [Plavix] 75 mg PO QDAY #30 tablet 03/04/21 Unknown Rx Famotidine [Pepcid] 20 mg PO BID #60 tablet 03/04/21 Unknown Rx Review of Systems Constitutional: no weight loss, no fever, no chills Ears, nose, mouth and throat: no nasal congestion, no nasal discharge Cardiovascular: chest pain, lightheadedness Respiratory: no cough, no hemoptysis Gastrointestinal: no nausea, no vomiting Rectal: no pain, no incontinence Musculoskeletal: no muscle weakness, no muscle cramps Integumentary: no rash, no redness Neurological: no seizures, no syncope Psychiatric: no anxiety, no paranoia Endocrine: no excessive thirst, no excessive sweating Hematologic/Lymphatic: no easy bruising, no easy bleeding Exam - Vital Signs Vital signs: Vital Signs Temp Pulse Resp BP Pulse Ox 98.3 F 60 16 63/33 92 03/08/21 19:45 03/08/21 19:45 03/08/21 19:45 03/08/21 19:45 03/08/21 19:45 - Physical Exam Narrative exam: General: No acute distress HEENT: Oral mucosa moist Neck: Supple, no JVD Chest: Clear to auscultation bilaterally Heart: RRR, S1 and S2, no pericardial rub Abdomen: Soft, nontender, no renal bruit Extremity: No peripheral cyanosis, edema Neurological: Alert, awake, no asterixis Dermatology: No skin rash Psych: No agitation Musculoskeletal: No joint effusion Results - Lab Results 03/10/21 05:42 03/10/21 05:42 Most recent lab results Calcium 8.6 mg/dL (8.4-10.2) 03/10/21 05:42 Assessment and Plan Assessment Acute kidney injury. Renal ultrasound reviewed, no acute pathology. Hyponatremia, mild Hypotension Dizziness Coronary artery disease Recommendations Acute kidney injury was likely secondary to hypertension/hypovolemia Renal function improved following discontinuation of a few antihypertensives and IV hydration Continue oral hydration Continue to hold lisinopril Renally dose medications Avoid nephrotoxins Renal diet Will need to f/u with renal and cardiology outpatient
--- NOTE | 2021-03-11 13:34 | Electrocardiograph Report ---
[facility] Test Date: 2021-03-08 Test Time: 19:38:28 Pat Name: YOKO ANDINO Department: Room: A463 1 Gender: M Marketing Designer: SHANNON : 1955 Requested By: SHELBY BORGES Order Number: [id number] Reading MD: Dale Elizabeth Measurements Intervals [place] Rate: 59 P: 141 CO: 207 QRS: -26 QRSD: 94 T: -73 QT: 454 QTc: 449 Interpretive Statements Sinus bradycardia Probable left atrial enlargement Deep lateral T wave inversions, consider acute lateral ischemia or left ventricular hypertrophy Nonspecific ST abnormality, consider old or recent high lateral infarct Compared to ECG 03/01/2021 17:06:01 Electronically Signed On 03-11-2021 13:33:43 EDT by Dale Elizabeth
== END 2021-03-10 12:56 | disposition home or self-care (01) ==
LOC: ED 19:03 → 4A 03-09 01:51
PROVIDERS: ADMIT Internal Medicine Geriatric Medicine; ATTEND Internal Medicine
DX: N17.9 Acute kidney failure, unspecified (principal); I95.9 Hypotension, unspecified; I25.10 Atherosclerotic heart disease of native coronary artery without angina pectoris; I10 Essential (primary) hypertension; T50.905A Adverse effect of unspecified drugs, medicaments and biological substances, initial encounter; K58.9 Irritable bowel syndrome, unspecified; G43.909 Migraine, unspecified, not intractable, without status migrainosus; F02.80 Dementia in other diseases classified elsewhere, unspecified severity, without behavioral disturbance, psychotic disturbance, mood disturbance, and anxiety; M19.90 Unspecified osteoarthritis, unspecified site; G47.33 Obstructive sleep apnea (adult) (pediatric); Z86.73 Personal history of transient ischemic attack (TIA), and cerebral infarction without residual deficits; Z79.82 Long term (current) use of aspirin; Z79.899 Other long term (current) drug therapy
CPT/HCPCS: 36415; 71045; 76770; 80048; 80053; 83036; 83880; 84484; 85007; 85025; 85610; 85730; 87641; 93005; 96361; 96372; 96374; 99291; A9270; G0378; J1644; J7030

== ENCOUNTER 2022-03-02 08:16 | Emergency (ER) | payer MEDICARE ==
--- NOTE | 2022-03-02 09:24 | XRay Report ---
Left ankle-3 views INDICATION: left ankle injury. COMPARISON: None available. IMPRESSION: Comminuted trimalleolar fractures with moderate generalized soft tissue swelling about t he ankle. There is slight inferomedial talar tilt and slight lateral subluxation of the talus. Mild t alonavicular DJD. Signer Name: Jarrett Elizabeth MD Signed: 03/02/2022 9:19 AM Workstation Name: [id number]
[2022-03-02] MEDS ORDERED: HYDROcodone/ACETAMINOPHEN 5-325 MG TAB PO ONE (09:25)
--- NOTE | 2022-03-02 09:27 | Emergency Department Report ---
ED Lower Extremity HPI - General Chief Complaint: Extremity Injury, Lower Stated Complaint: LT ANGLE BREAK Time Seen by Provider: 03/02/22 09:22 Source: EMS Mode of arrival: Wheelchair Limitations: No Limitations - History of Present Illness Initial Comments: 66-year-old male with a past medical history of hypertension presents to the ER today via EMS with complaints of left ankle pain and injury. Patient states that while walking up the steps at his house this morning he tripped and fell. He states that he was on the second step when the incident occurred. He states that he fell backwards but in the process twisted his left ankle. He denies any head injury. He reports inability to bear weight on the left ankle with associated swelling. He has not take anything for pain since the incident occurred. He denies any prior issues with his ankle in the past. MD Complaint: ankle injury -: This morning - Related Data Home Medications Medication Instructions Recorded Confirmed Last Taken Quetiapine Fumarate [SEROquel XR] 800 mg PO QHS 09/07/13 03/01/21 09/24/20 Tamsulosin HCl [Flomax] 0.4 mg PO DAILY 08/16/18 03/01/21 09/24/20 busPIRone [Buspar] 10 mg PO TID 08/16/18 03/01/21 09/24/20 Oxybutynin Chloride [Ditropan Xl] 10 mg PO QDAY 09/21/20 03/01/21 09/24/20 Thioridazine (Nf) [Mellaril (Nf)] 100 mg PO TID 09/21/20 03/01/21 09/24/20 Previous Rx's Medication Instructions Recorded Last Taken Type AtorvaSTATin [Lipitor] 40 mg PO QHS #30 tablet 03/04/21 Unknown Rx Clopidogrel [Plavix] 75 mg PO QDAY #30 tablet 03/04/21 Unknown Rx Famotidine [Pepcid] 20 mg PO BID #60 tablet 03/04/21 Unknown Rx HYDROcodone/APAP 5-325 [[place] 1 each PO Q6HR PRN #12 tablet 03/02/22 Unknown Rx 5/325] Allergies Allergy/AdvReac Type Severity Reaction Status Date / Time codeine Allergy Itching Verified 03/03/21 12:54 ED Review of Systems ROS: Stated complaint: LT ANGLE BREAK Other details as noted in HPI Comment: All other systems reviewed and negative Musculoskeletal: joint swelling, arthralgia Neurological: abnormal gait ED Past Medical Hx - Past Medical History Hx Hypertension: Yes Hx CVA: Yes (4) Hx Heart Attack/AMI: Yes Hx Congestive Heart Failure: No Hx Diabetes: No Hx Deep Vein Thrombosis: No Hx Pulmonary Embolism: No Hx GERD: No Hx Liver Disease: No Hx Renal Disease: No Hx Sickle Cell Disease: No Hx Arthritis: Yes Hx Headaches / Migraines: Yes (Migraines) Hx Seizures: No Hx Kidney Stones: No Hx Psychiatric Treatment: Yes (PTSD) Hx Asthma: No Hx COPD: No Hx Tuberculosis: No Hx Dementia: Yes Hx HIV: No Additional medical history: "IBS" - Surgical History Hx Open Heart Surgery: No Hx Pacemaker: No Hx Cholecystectomy: No Hx Appendectomy: No Hx Breast Surgery: No Additional Surgical History: lap band, penile implant - Social History Smoking Status: Never Smoker - Medications Home Medications: Home Medications Medication Instructions Recorded Confirmed Last Taken Type Quetiapine Fumarate [SEROquel XR] 800 mg PO QHS 09/07/13 03/01/21 09/24/20 History Tamsulosin HCl [Flomax] 0.4 mg PO DAILY 08/16/18 03/01/21 09/24/20 History busPIRone [Buspar] 10 mg PO TID 08/16/18 03/01/21 09/24/20 History Oxybutynin Chloride [Ditropan Xl] 10 mg PO QDAY 09/21/20 03/01/21 09/24/20 History Thioridazine (Nf) [Mellaril (Nf)] 100 mg PO TID 09/21/20 03/01/21 09/24/20 History AtorvaSTATin [Lipitor] 40 mg PO QHS #30 tablet 03/04/21 Unknown Rx Clopidogrel [Plavix] 75 mg PO QDAY #30 tablet 03/04/21 Unknown Rx Famotidine [Pepcid] 20 mg PO BID #60 tablet 03/04/21 Unknown Rx HYDROcodone/APAP 5-325 [[place] 1 each PO Q6HR PRN #12 tablet 03/02/22 Unknown Rx 5/325] ED Physical Exam - General Limitations: No Limitations General appearance: alert, in no apparent distress - Eye Eye exam: Present: normal appearance, PERRL, EOMI Pupils: Present: normal accommodation - Neck Neck exam: Present: normal inspection, full ROM. Absent: meningismus - Respiratory Respiratory exam: Absent: respiratory distress - Cardiovascular Cardiovascular Exam: Present: regular rate - Expanded Lower Extremity Exam Left Ankle exam: Present: tenderness (Moderate tenderness mainly to the lateral aspect of the ankle), swelling (Moderate swelling about the ankle). Absent: full ROM (Range of motion of the left ankle moderately reduced secondary to pain), ecchymosis, deformity, crepidus, dislocation, erythema, anterior draw sign Foot/Toe exam: Present: normal inspection. Absent: tenderness, swelling, abrasion, laceration, ecchymosis, deformity, crepidus, dislocation, erythema, puncture wound, tenderness at base of 5th metatarsal Neuro vascular tendon exam: Absent: no vascular compromise, pulse deficit, abnormal cap refill, motor deficit, sensory deficit, tendon deficit Gait: Positive: not tested/not observed - Neurological Exam Neurological exam: Present: alert, oriented X3, CN II-XII intact ED Course Vital Signs 03/02/22 03/02/22 08:23 10:01 Temperature 98.7 F Pulse Rate 81 Respiratory 18 20 Rate Blood Pressure 146/87 Blood Pressure 146/87 [Right] O2 Sat by Pulse 96 Oximetry - Orthopedic Splinting/Casting Injury #1 Side: left Lower Extremity Injury Location: ankle Lower Extremity Immobilizer: posterior splint, stirrup splint Other Orthopedic Equipment: crutches Additional Comments: Patient placed in a [place] fiberglass splint. Pre and post splint placement shows that patient is neurovascularly intact. ED Lower Extremity MDM - Radiology Data Radiology results: report reviewed Patient: YOKO ANDINO MR#: [id number] : 1955 Acct:[id number] Age/Sex: 66 / M ADM Date: 03/02/22 Loc: ED Attending Dr: Ordering Physician: LOUANN MEDINA MD Date of Service: 03/02/22 Procedure(s): XR ankle 3+V LT Accession Number(s): [id number] cc: LOUANN MEDINA MD Fluoro Time In Minutes: Left ankle-3 views INDICATION: left ankle injury. COMPARISON: None available. IMPRESSION: Comminuted trimalleolar fractures with moderate generalized soft tissue swelling about the ankle. There is slight inferomedial talar tilt and slight lateral subluxation of the talus. Mild talonavicular DJD. Signer Name: Jarrett Elizabeth MD Signed: 03/02/2022 9:19 AM Workstation Name: [id number] Transcribed By: ALISON Dictated By: Jarrett Elizabeth MD Electronically Authenticated By: Jarrett Elizabeth MD Signed Date/Time: 03/02/22918 DD/ 7 TD/TT: - Medical Decision Making X-ray of patient's left ankle shows a trimalleolar fracture. Discussed results with Dr. Medina who reviewed patient's x-ray results. There is no indication for any emergent reduction/manipulation at this time. Patient will be placed in a [place] fiberglass splint and given crutches. He will be given referral to Ortho for follow-up this week. He also be given medication for pain. Patient expressed understanding agree with plan. Patient was stable at time of discharge. Critical care attestation.: If time is entered above; I have spent that time in minutes in the direct care of this critically ill patient, excluding procedure time. ED Disposition Clinical Impression: Trimalleolar fracture of ankle, closed Disposition: HOME / SELF CARE / HOMELESS Is pt being admited?: No Does the pt Need Aspirin: No Condition: Stable Instructions: Ankle Fracture, [id number], Cast or Splint Care, Adult Additional Instructions: Do not remove the cast or get it wet. Use the crutches to help ambulate. Elevate your leg as often as possible. Try to avoid any weightbearing on that left ankle. Take the pain medications as prescribed. Follow-up with field sales specialist listed on your discharge instructions. I recommend you call tomorrow for an appointment. Return to the ER if your symptoms changes or worsens in any way. Prescriptions: HYDROcodone/APAP 5-325 [[place] 5/325] 1 each PO Q6HR PRN #12 tablet PRN Reason: Pain Referrals: PIERO CHAN MD [Primary Care Provider] - 3-5 Days KATHERINE JUSTIN MD [Staff Physician] - 2-3 Days ([employer]) Forms: Work/School Release Form(ED) Time of Disposition: 10:04
[2022-03-02 10:37] VITALS: BP 151/89
== END 2022-03-02 10:35 | disposition home or self-care (01) ==
LOC: ED 08:16
DX: S82.852A Displaced trimalleolar fracture of left lower leg, initial encounter for closed fracture (principal); X58.XXXA Exposure to other specified factors, initial encounter; I10 Essential (primary) hypertension; Z88.5 Allergy status to narcotic agent; Y93.89 Activity, other specified; Y92.89 Other specified places as the place of occurrence of the external cause; Y99.8 Other external cause status
CPT/HCPCS: 99284

== ENCOUNTER 2022-03-07 10:47 | Observation (INO) | payer MEDICARE ==
[2022-03-06 11:48] LABS: Hematocrit 44.3 % (35.5-45.6); Hemoglobin 14.6 gm/dl (11.8-15.2); Mean Corpuscular HGB Conc 33 % (32-34); Mean Corpuscular Volume 92 fl (84-94); Platelet Count 269 K/mm3 (140-440); Red Blood Count 4.85 M/mm3 (3.65-5.03); Red Cell Distribution Width 13.6 % (13.2-15.2)
[2022-03-06 12:11] LABS: Alanine Aminotransferase 17 units/L (7-56); BUN/Creatinine Ratio 11; Blood Urea Nitrogen 15 mg/dL (9-20); Calcium 8.8 mg/dL (8.4-10.2); Hemolysis Index 7
--- NOTE | 2022-03-06 13:15 | Anesthesia Consultation ---
Anesthesia Consult and Med Hx Date of service: 03/07/22 - Airway Anesthetic Teeth Evaluation: Chipped ROM Head & Neck: Adequate Mental/Hyoid Distance: Adequate Mallampati Class: Class II Intubation Access Assessment: Good - Pre-Operative Health Status ASA Pre-Surgery Classification: ASA4 Proposed Anesthetic Plan: General (If needed) Nerve Block: Sciatic - Pulmonary Hx Smoking: Yes (past smoker and stopped 2000) Hx Asthma: No Hx Respiratory Symptoms: No (+2FS) COPD: No Hx Pneumonia: Yes Hx Sleep Apnea: Yes - Cardiovascular System Hx Hypertension: Yes Hx Coronary Artery Disease: Yes (ECHO [id number] EF .55-.60) Hx Heart Attack/AMI: Yes (02/2021) Hx Angina: Yes (Had Stent 2020 and didn't f/u for Stage II) Hx Percutaneous Transluminal Coronary Angioplasty (PTCA): No Hx Pacemaker: No Hx Valvular Heart Disease: No Hx Peripheral Vascular Disease: Yes (Vascular dementia) - Central Nervous System Hx Neuromuscular Disorder: Yes (Migraines/Chronic fatigue syndrome) Hx Seizures: No CVA: Yes (Had right CEA 2019. Multiple TIAs) Hx Back Pain: Yes Hx Psychiatric Problems: Yes (PTSD/Anxiety/Depression) - Gastrointestinal Hx Ulcer: No Hx Gastroesophageal Reflux Disease: No - Endocrine Hx Renal Disease: No Hx End Stage Renal Disease: No Hx Cirrhosis: No Hx Liver Disease: No Hx Insulin Dependent Diabetes: No Hx Thyroid Disease: No Hx Hypothyroidism: No Hx Hyperthyroidism: No - Hematic Hx Anemia: No Hx Sickle Cell Disease: No - Other Systems Hx Alcohol Use: No Hx Substance Use: No Hx Cancer: No Hx Obesity: Yes - Additional Comments Anesthesia Medical History Comments: Spoke with Dr. Sanabria [phone] and he stated surgery is urgent because small window of time and can't wait till after he sees investment specialist. Pt was supposed to f/u with investment specialist and have PCI 09/2021 and he cancelled the appointment and didn't f/u. present at preop interview and I informed both of them about the greatly increased cardiac risk. Jehova's witness-NO BLOOD. Had Plavix and ASA Thursday so not a candidate for SAB
[~2022-03-07 10:47] MED LIST: ACETAMINOPHEN 500 MG TAB PO ONE; MAGNESIUM OXIDE 400 MG TAB PO ONE; MIDAZOLAM 2 MG/2 ML INJ IV NR; ceFAZolin/Water 2 GM/20 ML 2 GM/20 ML SYRINGE IV SCH; fentaNYL 100 MCG/2 ML INJ IV ONE
[2022-03-07] MEDS ORDERED: ACETAMINOPHEN 500 MG TAB ONE (11:26)
[2022-03-07] MEDS ORDERED: MAGNESIUM OXIDE 400 MG TAB PO ONE (11:27)
[2022-03-07] MEDS ORDERED: fentaNYL 100 MCG/2 ML INJ ONE ×2 (11:27→14:59)
[2022-03-07] MEDS ORDERED: BACTERIOSTATIC SODIUM CHLORIDE 0.9% 30 ML VIAL INFILTRATI ONE (12:06)
[2022-03-07] MEDS ORDERED: MORPHINE 2 MG/1 ML INJ ONE (12:08)
[2022-03-07] MEDS ORDERED: MORPHINE 2 MG/1 ML INJ IV SCH (12:08)
[2022-03-07] MEDS: LACTATED RINGERS 1,000 ML IV SCH ×2 (12:15→22:04)
[2022-03-07] MEDS ORDERED: BUPIVACAINE/PF (0.5%) 5 MG/1 ML 30 ML VIAL INFILTRATI ONE (14:37)
[2022-03-07] MEDS ORDERED: dexAMETHasone 4 MG/ML VIAL ONE (14:38)
[2022-03-07] MEDS ORDERED: BUPIVACAINE/PF (0.25%) 2.5 MG/ML 30 ML VIAL INFILTRATI ONE (14:38)
[2022-03-07] MEDS: MIDAZOLAM 2 MG/2 ML INJ IV SCH ×2 (14:50→15:01)
[2022-03-07] MEDS ORDERED: fentaNYL 100 MCG/2 ML INJ IV SCH (15:00)
[2022-03-07] MEDS ORDERED: ONDANSETRON 4 MG/2 ML INJ IV PRN (16:23)
[2022-03-07] MEDS ORDERED: HYDROmorphone 1 MG/1 ML INJ IV PRN (16:23)
--- NOTE | 2022-03-07 16:23 | Anesthesia Day of Surgery ---
Anesthesia Day of Surgery - Day of Surgery Patient Examined: Yes Patient H&P Reviewed: Yes Patient is NPO: Yes
[2022-03-07] MEDS ORDERED: ETOMIDATE 20 MG/10 ML INJ IV ONE (16:28)
[2022-03-07] MEDS ORDERED: KETAMINE/STERILE WATER 50 MG/ML SYRINGE ONE (16:29)
[2022-03-07] MEDS ORDERED: propofoL 200 MG/20 ML VIAL IV ONE (16:33)
[2022-03-07] MEDS ORDERED: NEOMY 40 MG/POLYMYXIN B 200,000 UNITS/ML (GU) AMPULE IR ONE ×2 (17:02→17:18)
[2022-03-07] MEDS ORDERED: dexAMETHasone 20 MG/5 ML VIAL ONE (17:10)
[2022-03-07] MEDS ORDERED: ePHEDrine SULFATE 50 MG/1 ML INJ ONE (17:17)
[2022-03-07] MEDS ORDERED: SODIUM CHLORIDE 0.9% 1000 ML IV SOLN IR ONE (17:17)
--- NOTE | 2022-03-07 17:48 | Procedure Note ---
Date of procedure: 03/07/22 Pre-op diagnosis: Displaced left bimalleolar ankle fracture Post-op diagnosis: same Procedure: Open reduction internal fixation left ankle fracture Procedure The patient was brought to the OR after having a femoral nerve block in preop holding for Postop pain management. The patient was placed on the OR table in supine position following induction and intubation the patient's left lower extremity was prepped and draped in the usual sterile manner. A timeout procedure was done to identify the patient and the correct operative site. The leg was then exsanguinated followed by inflation of the pneumatic tourniquet to 300 mmHg. A lateral incision was made over the distal fibula this is taken down sharply through skin and subcutaneous the fracture site was identified and using gentle manipulation the fracture fragments were reduced into a more anatomic position next a 6-hole one third semitubular plate was applied with screws of appropriate length and AP and lateral view was obtained and showed good reduction at the fracture and placement of the hardware. Next a curvlinear incision was made over the medial malleolus is then taken down sharply through skin and subcutaneous the fracture was identified and again using gentle manipulation I was held in place by way of a bone clamp next 2 small threaded K wires were used followed by placement of our 4.0 50 mm length cannulated screws again AP and lateral views were obtained showing good reduction medially. The wound was copiously irrigated the medial and lateral incisions were closed in a standard routine fashion postoperative dressings were applied as well as a well- padded posterior mold the patient tolerated the procedure there were no complications and he was sent to postanesthesia recovery in stable condition Anesthesia: MAC, regional Surgeon: KIRBY GIL (Rosy Vasquez. 1st assist) Estimated blood loss: minimal Pathology: none Condition: stable Disposition: PACU
--- NOTE | 2022-03-07 17:54 | XRay Report ---
INTRAOPERATIVE FLUOROSCOPY: LEFT ANKLE INDICATION / CLINICAL INFORMATION: LEFT ANKLE FRACTURE.. TECHNIQUE: Intraoperative spot images were obtained during the procedure. FINDINGS / IMPRESSION: Bimalleolar internal fixation has been performed with 2 medial malleolar screws and lateral fibular s ideplate. Alignment is anatomic. Fluoroscopy Time: 0.3 minutes. Fluoroscopy Images: 2. Signer Name: Hope Wilkinson MD Signed: 03/07/2022 5:50 PM Workstation Name: [id number]
--- NOTE | 2022-03-07 18:10 | Post Anesthesia Evaluation ---
- Post Anesthesia Evaluation Patient Participated: Yes Airway Patent: Yes Stable Respiratory Function: Yes Nausea/Vomiting: No Temp > 96.8F: Yes Pain Manageable: Yes Adequeate Hydration: Yes Anesthesia Complications: No Block Receding Appropriately: Yes Patient on Ventilator: No
[2022-03-07] MEDS: ceFAZolin/NS 1 GM/50 ML 1 GM/50 ML BAG IV SCH (20:17)
[2022-03-07] MEDS: MORPHINE 4 MG/1 ML INJ IV PRN (22:05)
[2022-03-08] MEDS: ceFAZolin/NS 1 GM/50 ML 1 GM/50 ML BAG IV SCH ×2 (02:25→02:26)
[2022-03-08] MEDS: KETOROLAC 30 MG/1 ML INJ IV PRN ×2 (02:37→14:50)
[2022-03-08] MEDS: LACTATED RINGERS 1,000 ML IV SCH ×2 (05:41→16:16)
--- NOTE | 2022-03-08 09:04 | Event Note ---
Date: 03/08/22 signed a phone order erroneously placed under my name. Patient was neither called or consulted to us. Please consult [facility] if our service is needed
[2022-03-08] MEDS: MORPHINE 4 MG/1 ML INJ IV PRN ×2 (11:47→22:47)
[2022-03-08] MEDS ORDERED: FLU VACC QUAD 2021-22(6MOS UP)/PF 60 MCG/0.5 ML SYRINGE IM ONE (12:00)
--- NOTE | 2022-03-08 13:32 | Progress Note ---
Assessment and Plan s/p ORIF left bimalleolar ankle fracture plan- continue PT, and observation, hopefully dc soon Subjective Date of service: 03/08/22 Interval history: c/o left ankle pain Objective Vital signs: Vital Signs - 12hr 03/08/22 03/08/22 03/08/22 02:37 03:07 04:36 Temperature 98.0 F Pulse Rate 76 Respiratory 17 18 12 Rate Blood Pressure 142/74 O2 Sat by Pulse 100 Oximetry 03/08/22 11:58 Temperature 99.8 F H Pulse Rate 85 Respiratory 24 Rate Blood Pressure 152/69 O2 Sat by Pulse 100 Oximetry Incision: clean and dry Weight bearing status: none - Labs CBC & BMP: 03/06/22 00:01 03/06/22 11:40
[2022-03-09] MEDS: LACTATED RINGERS 1,000 ML IV SCH ×3 (00:28→18:15)
[2022-03-09] MEDS: ceFAZolin/NS 1 GM/50 ML 1 GM/50 ML BAG IV SCH (03:04)
[2022-03-09] MEDS: HYDROmorphone 1 MG/1 ML INJ IV PRN ×2 (03:12→23:50)
[2022-03-09] MEDS: MORPHINE 4 MG/1 ML INJ IV PRN (09:30)
--- NOTE | 2022-03-09 11:00 | Consultation ---
History of Present Illness - Reason for Consult Consult date: 03/08/22 Medical Management Requesting physician: KIRBY GIL - History of Present Illness 66 YO Male with HTN, Recurrent CVA currently on Therapeutic Anticoagulation, Obesity, DC, Migraine MUÑIZ, Debility, Cerebral Atherosclerosis, Vascular Dementia, PTSD, IBS, Asthma, OA . Patient is confused and lethargic at the time of my evaluation is unable to provide history. Patient history provided by ED staff, EMS staff. As per staff the patient was found lying on the floor in his bedroom confused and pulling at the bed sheets unable to speak clearly, and unable to walk. EMS was notified and upon arrival the patient was found to be in distress with evidence of neurologic deficit. A code stroke was called and the patient was transported to [facility] for further care and evaluation of the aforementioned symptoms. Patient seen and evaluated in the emergency department. Lab and imaging studies r martha. Patient found to have clinical symptoms consistent with CVA, metabolic encephalopathy, systemic inflammatory response syndrome suspected secondary to urinary tract infection. Patient admitted to medical floor and initiated on CVA protocol as well as empiric IV antibiotic therapy. Prior admission on 06/18/2015 reviewed. All medication listed at time of admission has been reconciled. Ad vanced care planning conducted in ED. No further history is obtainable. Patient has positive gag reflex and is able to protect his airway without difficulty. Past History Past Medical History: acute DC, hypertension, migraines, other (See HPI) Past Surgical History: bowel surgery, Other (Penile implant) Social history: , lives with family. denies: smoking, alcohol abuse Family history: hypertension Medications and Allergies Allergies Allergy/AdvReac Type Severity Reaction Status Date / Time No Known Allergies Allergy Verified 03/06/22 12:53 Home Medications Medication Instructions Recorded Confirmed Last Taken Type Quetiapine Fumarate [SEROquel XR] 800 mg PO QHS 09/07/13 03/06/22 09/24/20 History Tamsulosin HCl [Flomax] 0.4 mg PO DAILY 08/16/18 03/06/22 09/24/20 History Oxybutynin Chloride [Ditropan Xl] 10 mg PO QDAY 09/21/20 03/06/22 09/24/20 History Clopidogrel [Plavix] 75 mg PO QDAY #30 tablet 03/04/21 03/06/22 Unknown Rx HYDROcodone/APAP 5-325 [Pala 1 each PO Q6HR PRN #12 tablet 03/02/22 03/06/22 Unknown Rx 5/325] ALPRAZolam [Xanax TAB] 1 mg PO DAILY 03/06/22 03/06/22 Unknown History Amlodipine Besylate [Norvasc] 5 mg PO DAILY 03/06/22 03/06/22 Unknown History Aspirin [[place] Aspirin EC] 81 mg PO DAILY 03/06/22 03/06/22 03/04/22 History AtorvaSTATin [Lipitor] 10 mg PO QHS 03/06/22 03/06/22 Unknown History Clopidogrel [Plavix] 75 mg PO QDAY 03/06/22 03/06/22 03/04/22 History Linaclotide [Linzess] 290 mcg PO DAILY 03/06/22 03/06/22 Unknown History Losartan/Hydrochlorothiazide 1 each PO DAILY 03/06/22 03/06/22 Unknown History [Losartan-Hctz 100-25 mg Tab] Oxycodone HCl [oxyCODONE] 10 mg PO BID 03/06/22 03/06/22 Unknown History Prazosin [Minipress] 2 mg PO TID 03/06/22 03/06/22 Unknown History Pregabalin [Lyrica] 150 mg PO QHS 03/06/22 03/06/22 Unknown History Ranolazine [Ranexa] 500 mg PO BID 03/06/22 03/06/22 Unknown History carvediloL [Coreg] 6.25 mg PO BID 03/06/22 03/06/22 Unknown History traMADoL [Ultram] 50 mg PO Q4HR PRN 03/06/22 03/06/22 Unknown History traZODone [Desyrel] 50 mg PO QHS 03/06/22 03/06/22 Unknown History Oxycodone HCl/Acetaminophen 1 each PO Q6HR PRN #30 03/08/22 Unknown Rx [Percocet 10/325 mg] cephALEXin [Keflex] 500 mg PO Q12HR #30 cap 03/08/22 Unknown Rx Active Meds: Active Medications Hydromorphone HCl (Hydromorphone 1 Mg/1 Ml Inj) 0.25 mg IV Q10MIN PRN PRN Reason: Pain, Moderate (4-6) Last Admin: 03/09/22 03:12 Dose: 0.25 mg Hydromorphone HCl (Hydromorphone 1 Mg/1 Ml Inj) 0.5 mg IV Q10MIN PRN PRN Reason: Pain , Severe (7-10) Lactated Ringer's (Lactated Ringers) 1,000 mls @ 125 mls/hr IV DIRECT POLLY Last Admin: 03/09/22 09:29 Dose: 125 mls/hr Ketorolac Tromethamine (Ketorolac 30 Mg/1 Ml Inj) 30 mg IV Q6H PRN PRN Reason: Pain, Moderate (4-6) Stop: 03/12/22 17:39 Last Admin: 03/08/22 14:50 Dose: 30 mg Morphine Sulfate (Morphine 4 Mg/1 Ml Inj) 4 mg IV Q4H PRN PRN Reason: Pain , Severe (7-10) Last Admin: 03/09/22 09:30 Dose: 4 mg Ondansetron HCl (Ondansetron 4 Mg/2 Ml Inj) 4 mg IV ONCE PRN PRN Reason: Nausea And Vomiting Exam - Constitutional Vitals: Temp Pulse Resp BP Pulse Ox 98.4 F 65 20 163/71 99 03/09/22 05:47 03/09/22 05:47 03/09/22 05:47 03/09/22 05:47 03/09/22 05:47 Results - Labs CBC & Chem 7: 03/06/22 00:01 03/06/22 11:40
[2022-03-09] MEDS: KETOROLAC 30 MG/1 ML INJ IV PRN (11:13)
[2022-03-09] MEDS ORDERED: traMADol 50 MG TAB PO PRN (11:30)
[2022-03-09] MEDS ORDERED: HYDROcodone/ACETAMINOPHEN 5-325 MG TAB PO PRN (12:00)
[2022-03-09] MEDS: QUEtiapine 200 MG TAB PO SCH ×2 (12:40→22:59)
[2022-03-09] MEDS: carvediloL 6.25 MG TAB PO SCH ×2 (12:41→23:03)
[2022-03-09] MEDS: OXYBUTYNIN 5 MG TAB PO SCH ×2 (12:41→22:59)
[2022-03-09] MEDS: PRAZOSIN 1 MG CAP PO SCH ×2 (13:27→23:03)
[2022-03-09] MEDS ORDERED: NON-FORMULARY EACH (Prazosin [Minipress] 2 MG Capsule) PO SCH (14:00)
[2022-03-09] MEDS ORDERED: traZODone 50 MG TAB PO SCH (22:00)
[2022-03-09] MEDS ORDERED: NON-FORMULARY EACH (Oxycodone Hcl [Oxycodone] 10 MG Tablet) PO SCH (22:00)
[2022-03-09] MEDS ORDERED: NON-FORMULARY EACH (Pregabalin [Lyrica] 150 MG Capsule) PO SCH (22:00)
[2022-03-09] MEDS ORDERED: QUETIAPINE FUMARATE 400 MG PO SCH (22:00)
[2022-03-09] MEDS ORDERED: PREGABALIN 75 MG CAP PO SCH (22:00)
[2022-03-09] MEDS: oxyCODONE 5 MG TAB PO SCH (22:58)
[2022-03-09] MEDS: RANOLAZINE ER 500 MG TAB 12HR PO SCH (22:59)
[2022-03-10] MEDS: LACTATED RINGERS 1,000 ML IV SCH (09:40)
[2022-03-10] MEDS: QUEtiapine 200 MG TAB PO SCH (09:41)
[2022-03-10] MEDS: carvediloL 6.25 MG TAB PO SCH (09:41)
[2022-03-10] MEDS: oxyCODONE 5 MG TAB PO SCH (09:42)
[2022-03-10] MEDS: PRAZOSIN 1 MG CAP PO SCH ×2 (09:43→15:24)
[2022-03-10] MEDS: OXYBUTYNIN 5 MG TAB PO SCH (09:43)
[2022-03-10] MEDS: RANOLAZINE ER 500 MG TAB 12HR PO SCH (09:53)
[2022-03-10] MEDS ORDERED: LOSARTAN 50 MG TAB PO SCH (10:00)
[2022-03-10] MEDS ORDERED: ALPRAZolam 1 MG TAB PO SCH (10:00)
[2022-03-10] MEDS ORDERED: amLODIPine 5 MG TAB PO SCH (10:00)
[2022-03-10] MEDS ORDERED: ASPIRIN EC 81 MG TAB PO SCH (10:00)
[2022-03-10] MEDS ORDERED: TAMSULOSIN 0.4 MG CAP PO SCH (10:00)
[2022-03-10] MEDS ORDERED: NON-FORMULARY EACH (Oxybutynin Chloride [Ditropan Xl] 10 MG Tab.Er.24) PO SCH (10:00)
[2022-03-10] MEDS ORDERED: hydroCHLOROthiazide 25 MG TAB PO SCH (10:00)
[2022-03-10] MEDS ORDERED: CLOPIDOGREL 75 MG TAB PO SCH (10:00)
[2022-03-10] MEDS ORDERED: NON-FORMULARY EACH (Losartan/Hydrochlorothiazide [Losartan-Hctz 100-25 Mg Tab] 1 EACH Tabl PO SCH (10:00)
--- NOTE | 2022-03-10 13:33 | Discharge Summary ---
Providers - Providers Date of Admission: 03/07/22 17:40 Date of discharge: 03/10/22 Attending physician: KIRBY GIL MD 03/07/22 17:40 Consult to Case Management [CONS] Routine Services Needed at Discharge: Other Notified:: yes Additional Physician Instructions: Assess Discharge needs. Physical Therapy Evaluation and Treat [CONS] Routine Comment: Reason For Exam: Eval and Treat Weight bearing status?: Nonwt bearing Assistive devices?: Yes If so list: Walker 03/08/22 13:39 Consult to Case Management [CONS] Urgent Services Needed at Discharge: Physical Therapy Notified:: yes Additional Physician Instructions: will need walker, bedside commode, and home P T Primary care physician: PIERO CHAN Hospitalization Condition: Stable Disposition: 06 HOME HEALTH CARE SERVICE Core Measure Documentation - Palliative Care Palliative Care/ Comfort Measures: Not Applicable Exam - Physical Exam Narrative exam: Alert and oriented x 3 post op splint/dressing intact slight bloody drainage good capillary refill distally - Constitutional Vitals: Temp Pulse Resp BP Pulse Ox 99.8 F H 72 18 123/62 94 03/10/22 05:26 03/10/22 09:59 03/10/22 05:26 03/10/22 09:59 03/10/22 05:26 Plan Follow up with: PIERO CHAN MD [Primary Care Provider] - 7 Days Prescriptions: cephALEXin [Keflex] 500 mg PO Q12HR #30 cap Oxycodone HCl/Acetaminophen [Percocet 10/325 mg] 1 each PO Q6HR PRN #30 PRN Reason: Pain
[2022-03-10] MEDS: KETOROLAC 30 MG/1 ML INJ IV PRN (14:36)
[2022-03-10 15:34] VITALS: BP 112/59
== END 2022-03-10 18:15 | disposition home health service (06) ==
LOC: OR 10:47 → 3A 17:40 → INTOOBSV 17:40
PROVIDERS: ADMIT Orthopaedic Surgery; ATTEND Orthopaedic Surgery
DX: S82.852A Displaced trimalleolar fracture of left lower leg, initial encounter for closed fracture (principal); Z20.822 Contact with and (suspected) exposure to COVID-19; M12.872 Other specific arthropathies, not elsewhere classified, left ankle and foot; M25.572 Pain in left ankle and joints of left foot; I10 Essential (primary) hypertension; F32.9 Major depressive disorder, single episode, unspecified; I49.9 Cardiac arrhythmia, unspecified; E78.00 Pure hypercholesterolemia, unspecified; I25.10 Atherosclerotic heart disease of native coronary artery without angina pectoris; F41.9 Anxiety disorder, unspecified; R53.82 Chronic fatigue, unspecified; Z95.1 Presence of aortocoronary bypass graft; Z86.73 Personal history of transient ischemic attack (TIA), and cerebral infarction without residual deficits; Z87.891 Personal history of nicotine dependence; Z79.899 Other long term (current) drug therapy; Z98.890 Other specified postprocedural states; W01.0XXA Fall on same level from slipping, tripping and stumbling without subsequent striking against object, initial encounter; Y93.01 Activity, walking, marching and hiking; Y92.89 Other specified places as the place of occurrence of the external cause; Y99.8 Other external cause status
CPT/HCPCS: 27814; 36415; 64447; 73600; 80053; 85027; 96365; 96366; 96375; 96376; 97116; 97161; 97530; C1713; G0378; J0690; J1100; J1170; J1885; J2250; J2270; J2704; J3010; J3490; J7030; J7120; L8699; U0003; 64445; 64450; 90686

== ENCOUNTER 2022-05-14 12:33 | Outpatient (CLI) | payer MEDICARE ==
--- NOTE | 2022-05-14 14:09 | XRay Report ---
. LEFT ANKLE 2 VIEWS INDICATION / CLINICAL INFORMATION: M25.572 PAIN IN LEFT ANKLE AND JOINT OF LEFT FOOT COMPARISON: 03/02/2022 FINDINGS: BONES / JOINT(S): There has been interval placement of 2 medial malleolar screws cross the fracture. There is incomplete fracture healing. Lateral cortical plate with screw fixation is seen across the d istal fibula fracture. This fracture appears healed. There is healing at the posterior malleolus frac ture. No acute/new fractures. No significant arthritis. SOFT TISSUES: No significant abnormality. ADDITIONAL FINDINGS: None. IMPRESSION: No acute findings. Signer Name: Jaciel Oliver MD Signed: 05/14/2022 2:05 PM Workstation Name: [id number]
== END 2022-05-14 12:34 | disposition home or self-care (01) ==
LOC: XRAY 12:33
PROVIDERS: ATTEND Orthopaedic Surgery
DX: S82.892D Other fracture of left lower leg, subsequent encounter for closed fracture with routine healing (principal); S82.852A Displaced trimalleolar fracture of left lower leg, initial encounter for closed fracture; S82.853A Displaced trimalleolar fracture of unspecified lower leg, initial encounter for closed fracture; M25.572 Pain in left ankle and joints of left foot; X58.XXXA Exposure to other specified factors, initial encounter; Y93.89 Activity, other specified; Y92.89 Other specified places as the place of occurrence of the external cause; Y99.8 Other external cause status